=== PATIENT | male | born 1945 | race Caucasian/White ===

== ENCOUNTER 2018-09-12 20:47 | Emergency (ER) | payer MEDICARE, BC ==
[2018-09-12] MEDS ORDERED: Ondansetron PF 4 MG/2 ML Vial ONE (22:08)
[2018-09-12 22:11] LABS: #Lymphocytes 1.5 thou/uL (1.20-3.40); #Monocytes 1.2 thou/uL (0.11-0.59); #Neutrophils 9.6 thou/uL (1.40-6.50); %Basophils 0.3 % (0.0-1.0); %Eosinophils 0.1 % (0.0-10.0); %Lymphocytes 12.1 % (21.0-51.0); %Monocytes 9.4 % (0.0-10.0); %Neutrophils 78.1 % (42.0-75.0); Hemoglobin 14.4 g/dL (14.0-18.0); Mean Corpuscular HGB CONC 32.2 g/dL (32.0-36.0); Mean Corpuscular Hemoglobin 28.8 pg (27.0-31.0); Mean Corpuscular Volume 89.6 fL (78.0-98.0); Mean Platelet Volume 9.8 fL (7.4-10.4); Platelet Count 150 thou/uL (130-400); RBC Distribution Width 12.8 % (11.5-14.5); White Blood Cell (WBC) Count 12.3 thou/uL (4.8-10.8)
[2018-09-12 22:23] LABS: ALT (SGPT) 10 U/L (8-55); AST (SGOT) 15 U/L (5-34); Albumin 3.9 g/dL (3.4-4.8); Alkaline Phosphatase 97 U/L (40-150); Anion Gap 16 mmol/L (10-20); BUN (Urea Nitrogen) 13 mg/dL (8.4-25.7); Bilirubin, Total 0.5 mg/dL (0.2-1.2); Calc. Creatinine Clearance 0 mL/min (70-130); Carbon Dioxide 29 mmol/L (23-31); Chloride 97 mmol/L (98-107); Estimated GFR-MDRD 47; Globulin 2.8 g/dL (2.4-3.5); Glucose 105 mg/dL (83-110); Lipase 19 U/L (8-78); Potassium 4.4 mmol/L (3.5-5.1); Protein, Total 6.7 g/dL (5.8-8.1); Sodium 138 mmol/L (136-145)
--- NOTE | 2018-09-12 22:48 | RAD ---
Exam: Single view of the chest and 2 views of the abdomen HISTORY: Abdominal pain COMPARISON: None FINDINGS: 2 views of the abdomen and a single view the chest shows a nonspecific, nonobstructive mike l gas pattern. Air is seen to the level of the rectum. No free air or air-fluid levels are seen and upright examination. A stent graft is seen in the distal aorta. The cardiomediastinal silhouette is normal in size. There is no evidence of consolidation, mass, or p leural effusion. IMPRESSION: Nonobstructive bowel gas pattern
[2018-09-12] MEDS ORDERED: Dicyclomine 20 MG TAB ONE (23:25)
== END 2018-09-13 00:29 | disposition home or self-care (01) ==
LOC: ERS 20:47
DX: K52.9 Noninfective gastroenteritis and colitis, unspecified (principal); E04.9 Nontoxic goiter, unspecified; I10 Essential (primary) hypertension; I25.2 Old myocardial infarction; F17.210 Nicotine dependence, cigarettes, uncomplicated; Z79.899 Other long term (current) drug therapy
CPT/HCPCS: 36415; 74022; 80053; 83605; 83690; 83880; 84484; 85025; 93005; 94760; 96361; 96374; J2405; J7620

== ENCOUNTER 2018-09-14 10:07 | Inpatient (IN) | payer MEDICARE, BC ==
--- NOTE | 2018-09-14 10:40 | RAD ---
Exam: Chest one view HISTORY:Shortness of breath. Cough. Comparison: 08/21/2014 FINDINGS: Cardiac silhouette: Normal Pulmonary vessels: Normal Costophrenic angles: Clear LUNGS: Patchy interstitial opacities throughout the lung parenchyma, greatest in the lung bases. Pneumothorax: None Osseous abnormalities: None IMPRESSION: Patchy interstitial opacities, greatest in the lung bases. Correlate for edema or infiltr ate.
[2018-09-14 11:00] LABS: Hemoglobin 13.5 g/dL (14.0-18.0); Mean Corpuscular HGB CONC 32.1 g/dL (32.0-36.0); Mean Corpuscular Volume 90.3 fL (78.0-98.0); Mean Platelet Volume 9.6 fL (7.4-10.4); Platelet Count 148 thou/uL (130-400); RBC Distribution Width 13.1 % (11.5-14.5); Red Blood Cell (RBC) Count 4.65 mill/uL (4.70-6.10); White Blood Cell (WBC) Count 14.4 thou/uL (4.8-10.8)
[2018-09-14 11:26] LABS: ALT (SGPT) 13 U/L (8-55); AST (SGOT) 28 U/L (5-34); Albumin 3.3 g/dL (3.4-4.8); Alkaline Phosphatase 102 U/L (40-150); Anion Gap 17 mmol/L (10-20); BUN (Urea Nitrogen) 18 mg/dL (8.4-25.7); Band 18 % (5-11); Bilirubin, Total 0.5 mg/dL (0.2-1.2); CK (CPK) 121 U/L (30-200); Calc. Creatinine Clearance 0 mL/min (70-130); Calcium 8.4 mg/dL (7.8-10.44); Carbon Dioxide 27 mmol/L (23-31); Chloride 97 mmol/L (98-107); Estimated GFR-MDRD 44; Glucose 97 mg/dL (83-110); Lymphocytes 4 % (21-51); MDiff Complete? YES; Monocytes 9 % (0-10); Neutrophil 69 % (42-75); Platelet Morphology Comment Appears Adequate; Potassium 5.6 mmol/L (3.5-5.1); Protein, Total 6.3 g/dL (5.8-8.1); RBC Morphology Normal; Sodium 135 mmol/L (136-145); Vacuoles SLIGHT
[2018-09-14] MEDS ORDERED: Azithromycin 500 MG VIAL ONE (11:36)
[2018-09-14] MEDS ORDERED: cefTRIAXone\\ROCEPHIN 2 GM VIAL ONE (11:36)
[2018-09-14] MEDS ORDERED: methylPREDNISolone Sod Succ/PF 125 MG/2 ML VIAL ONE (11:41)
[2018-09-14] MEDS ORDERED: Acetaminophen 325 MG TAB PO PRN (13:13)
[2018-09-14] MEDS ORDERED: Calcium Carbonate 500 MG ChewTAB PO PRN (13:13)
[2018-09-14] MEDS ORDERED: Ondansetron ODT 4 MG TAB PO PRN (13:13)
[2018-09-14] MEDS ORDERED: Ondansetron PF 4 MG/2 ML Vial IVP PRN (13:13)
[2018-09-14] MEDS ORDERED: Senokot S 8.6-50 MG TAB PO PRN (13:13)
[2018-09-14] MEDS ORDERED: Pharmacy to Dose ALL ABX IVPB PRN (13:17)
[2018-09-14] MEDS ORDERED: cloNIDine 0.1 MG TAB PO PRN (13:17)
[2018-09-14] MEDS ORDERED: Bacteriostatic Water 30 ML VIAL FS PRN (13:33)
--- NOTE | 2018-09-14 13:44 | HP ---
PRIMARY CARE PHYSICIAN: Dr. Burt. PRIMARY LOOM FIXER SUPERVISOR: None. CHIEF COMPLAINT: Shortness of breath with generalized weakness. HISTORY OF PRESENT ILLNESS: The patient is a 73-year-old male with COPD with recent acute gastroenteritis, presented to the emergency room with above complaints. Over the last 1 week, the patient is not feeling well. He developed gradual worsening shortness of breath along with chest tightness and wheezing. He had cough productive of thick whitish phlegm. He felt nauseous and had several episodes of diarrhea. He was unable to keep food down. He took Imodium with some help. He was evaluated in the emergency room two days ago and was discharged home after a negative acute abdominal series. His last bowel movement was two days ago. He denies any orthopnea or paroxysmal nocturnal dyspnea. No leg swelling reported. He denies any chest pain or syncope. In the emergency room, he was found to be hypoxic, requiring supplemental oxygen. He was started on antibiotics for pneumonia. PAST MEDICAL HISTORY: 1. COPD. 2. Coronary artery disease, status post stent placement. 3. History of abdominal aortic aneurysm, status post repair. 4. History of renal infarct. 5. GERD. 6. Hypothyroidism. 7. Hypertension. 8. Tobacco dependence. 9. Peripheral vascular disease. PAST SURGICAL HISTORY: 1. Coronary stent placement. 2. Endovascular repair of abdominal aortic aneurysm in 2014. 3. Lumbar surgery for herniated back in 1999. 4. Left thyroidectomy. ALLERGIES: THE PATIENT IS ALLERGIC TO VALIUM AND MORPHINE. CURRENT HOME MEDICATIONS: The patient does not have an accurate list of medication. Family to bring the accurate list. SOCIAL HISTORY: The patient currently lives at home with his . He continues to smoke up to one pack a day for last 30 years. Denies any alcohol or drug abuse. FAMILY HISTORY: Negative for premature coronary artery disease. REVIEW OF SYSTEMS: All other review of systems was reviewed and were found negative. PHYSICAL EXAMINATION: VITAL SIGNS: Temperature 98.2, respiration of 24, pulse rate of 102, blood pressure 114/60 with O2 saturation 84% on room air. GENERAL: A 73-year-old male, in [id number] respiratory distress, able to complete short phrases. HEENT: Head; atraumatic and normocephalic. Sclerae anicteric. Dry mucous membranes. No oral lesion. NECK: Supple. No JVD appreciated. No carotid bruit. LUNGS: Showed diffuse expiratory wheezing with rhonchi. There were rales over the bases. There was significant accessory muscle use. HEART: S1 and S2 present. Tachycardic. No heaves or pulsation. 2/6 systolic murmur over the mitral area. ABDOMEN: Soft. No guarding or rigidity. There was mild tenderness over the rectus abdominis muscle. No costovertebral angle tenderness. Bowel sounds present. EXTREMITIES: No edema or calf tenderness. NEUROLOGIC: Grossly nonfocal. Moves all 4 extremities. Power was 5/5 in all extremities. PSYCHIATRIC: Alert, awake, and oriented x3. SKIN: Warm and dry. LYMPH NODES: No palpable lymph nodes in the neck. Peripheral vascular radial pulses palpable bilaterally. MUSCULOSKELETAL: No joint swelling tenderness. LABORATORY FINDINGS: WBC 14.4 with 18% bandemia, hemoglobin 13.5. Chemistry showed sodium 135, potassium 5.6, chloride 97, bicarb 27, BUN 18, creatinine 1.55, baseline creatinine unavailable. In 2016, it was 1.02. Chest x-ray by my review showed patchy interstitial opacities at the lung bases. EKG by my review showed normal sinus rhythm without significant ST-T wave changes. IMPRESSION: 1. Acute Hypoxic Respiratory failure due to COPD Exacerbation/Pneumonia 2. Sepsis with acute organ dysfunction secondary to pneumonia, suspected gram negative. 3. Acute kidney injury on chronic kidney disease stage 2. 4. Electrolyte abnormality. The patient has hyponatremia and hyperkalemia. 5. Peripheral vascular disease. 6. History of abdominal aortic aneurysm, status post endovascular repair. 7. Gastroesophageal reflux disease. 8. Hypothyroidism. 9. Hypertension. 10. Benign prostatic hypertrophy. 11. Hyperlipidemia. 12. Ongoing tobacco abuse PLAN: The patient will be monitored on the telemetry unit due to hyperkalemia. We will continue nebulizer treatment every 4 hourly as well as needed. We will continue ceftriaxone, azithromycin along with IV steroids. We will consult Pulmonary, Dr. Puri. We will add Mucinex. Resume home medications once confirmed. Lovenox for DVT prophylaxis. No SCDs due to peripheral vascular disease. ESTIMATED LENGTH OF STAY: The patient will require 2 to 3 days for stabilization. Job ID: [id number] [facility]
[2018-09-14] MEDS: Sodium Chloride 0.9% 1,000 ML IV SCH (14:22)
--- NOTE | 2018-09-14 16:33 | CON ---
DATE OF CONSULTATION: 09/14/2018 CONSULTING PHYSICIAN: Giovanni Falcon MD REASON FOR CONSULTATION: COPD exacerbation and pneumonia. The following encompassed 70 minutes time, of that time, greater than 50% was spent with the patient and/or the patient's unit in the hospital. HISTORY OF PRESENT ILLNESS: A 73-year-old male, who is visiting the hospital for the second time in 2 days. He is having increasing shortness of breath, cough, and productive yellow sputum. Symptoms have been present for over 2 days. He had an episode of severe diarrhea and an episode of vomiting last week, but the symptoms are no longer present. The patient is at least a one pack per day smoker. He has had a similar hospitalization in the past 2013 and was taken care by Dr. Rueda at that time. He is currently not on oxygen at home, but does take some type of inhaler. PAST MEDICAL HISTORY: 1. Chronic obstructive pulmonary disease. 2. Tobacco abuse. 3. Coronary artery disease, requiring coronary stent placement. 4. Abdominal aortic aneurysm requiring a Y-graft. 5. Renal infarction. 6. Gastroesophageal reflux. 7. Chronic renal insufficiency. 8. Hypothyroidism. 9. Hypertension. 10. Peripheral vascular disease. PAST SURGICAL HISTORY: 1. Coronary stent placement. 2. Y-stent in the abdomen. 3. Lumbar surgery for herniated disks. 4. Left thyroidectomy. ALLERGIES: VALIUM MAKES HIM FEEL "CRAZY." MEDICATIONS: The patient did not bring a list. SOCIAL HISTORY: Smokes at least a pack per day. Smoked heavier in the past. Does not consume alcohol. Does not use illicit drugs. 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 FAMILY MEDICAL HISTORY: Unremarkable. REVIEW OF SYSTEMS: Twelve-point review of systems is otherwise negative. PHYSICAL EXAMINATION: VITAL SIGNS: Temperature is 98.2, pulse 102, blood pressure 114/60, O2 saturation is 100% on 3 L nasal cannula, and respiratory rate in the low 30s. GENERAL: He is an elderly male, who appears older than the stated age and does have some degree of respiratory distress. HEENT: He has mild bitemporal wasting. Oropharynx is clear. No jaundice. NECK: No adenopathy. No JVD or bruits. He has a left-sided surgical scar. CARDIOVASCULAR: S1 and S2, tachycardic without audible murmur. LUNGS: He has diffuse crackles, most prominent at the bases. He has diffuse wheezing, most prominent over the apices posteriorly. ABDOMEN: Soft and nontender. There is no hepatosplenomegaly. EXTREMITIES: No clubbing, cyanosis, or edema. NEUROLOGIC: He moves all 4 extremities without difficulty. Has full sensation throughout. He is alert and oriented x3. SKIN: Shows no rashes, bruising, or jaundice. LABORATORY DATA: Sodium 135, potassium 5.6, chloride 97, CO2 of 27, BUN 18, creatinine 1.5, glucose 97, and albumin 3.3. White blood cell count 14.4, hemoglobin 13.5, hematocrit 42.0, and platelet count 148 with 69% neutrophils, 18% bands. IMAGING DATA: Chest x-ray shows some interstitial changes towards the bases. ASSESSMENT: 1. Chronic obstructive pulmonary disease with exacerbation. 2. Acute on chronic hypoxic respiratory failure. 3. Possible pneumonitis given appearance of x-ray. PLAN: The patient will be admitted to the hospital and placed on IV steroids, IV antibiotics, nebulization treatments. He will receive enoxaparin for DVT prophylaxis and Protonix for GI prophylaxis. Smoking cessation has been advised. Job ID: [id number]
[2018-09-14] MEDS: Nicotine 14 MG PATCH TD SCH ×3 (17:54→19:03)
[2018-09-14] MEDS ORDERED: methylPREDNISolone Sod Succ/PF 125 MG/2 ML VIAL IVP SCH (18:00)
[2018-09-14] MEDS: methylPREDNISolone Sod Succ 40 MG VIAL IVP SCH ×2 (18:04→23:45)
[2018-09-14] MEDS: Mometasone/Formoterol 120 PUFF INHALER INH SCH (18:40)
[2018-09-14] MEDS: guaiFENesin ER 600 MG TAB PO SCH (20:09)
[2018-09-14] MEDS: Enoxaparin Sodium 40 MG/0.4 ML SYRINGE SC SCH (20:09)
[2018-09-15] MEDS: Sodium Chloride 0.9% 1,000 ML IV SCH ×2 (04:14→16:15)
[2018-09-15] MEDS: methylPREDNISolone Sod Succ 40 MG VIAL IVP SCH ×4 (05:39→23:07)
[2018-09-15] MEDS: Levothyroxine Sodium 125 MCG TAB PO SCH (05:39)
[2018-09-15 06:53] LABS: #Lymphocytes 0.4 thou/uL (1.20-3.40); #Monocytes 0.2 thou/uL (0.11-0.59); #Neutrophils 9.7 thou/uL (1.40-6.50); %Basophils 0.4 % (0.0-1.0); %Eosinophils 0.1 % (0.0-10.0); %Lymphocytes 3.7 % (21.0-51.0); %Monocytes 2.1 % (0.0-10.0); %Neutrophils 93.7 % (42.0-75.0); Hemoglobin 12.5 g/dL (14.0-18.0); Mean Corpuscular HGB CONC 31.7 g/dL (32.0-36.0); Mean Corpuscular Hemoglobin 29.2 pg (27.0-31.0); Mean Corpuscular Volume 92.2 fL (78.0-98.0); Mean Platelet Volume 9.9 fL (7.4-10.4); Platelet Count 134 thou/uL (130-400); Red Blood Cell (RBC) Count 4.29 mill/uL (4.70-6.10); White Blood Cell (WBC) Count 10.4 thou/uL (4.8-10.8)
[2018-09-15 07:12] LABS: Anion Gap 13 mmol/L (10-20); BUN (Urea Nitrogen) 16 mg/dL (8.4-25.7); Calc. Creatinine Clearance 59 mL/min (70-130); Calcium 8.7 mg/dL (7.8-10.44); Carbon Dioxide 26 mmol/L (23-31); Chloride 101 mmol/L (98-107); Estimated GFR-MDRD 71; Glucose 193 mg/dL (83-110); Magnesium 1.9 mg/dL (1.6-2.6); Potassium 4.2 mmol/L (3.5-5.1); Sodium 136 mmol/L (136-145)
[2018-09-15] MEDS: Mometasone/Formoterol 120 PUFF INHALER INH SCH ×2 (07:17→18:53)
[2018-09-15] MEDS: guaiFENesin ER 600 MG TAB PO SCH ×2 (08:54→21:39)
[2018-09-15] MEDS: Clopidogrel Bisulfate 75 MG TAB PO SCH (08:54)
[2018-09-15] MEDS: Saccharomyces boulardii 250 MG CAP PO SCH (08:54)
[2018-09-15] MEDS: Azithromycin 500 MG in Sodium Chloride 0.9% 250 ML 250 ML IVPB SCH (10:58)
[2018-09-15] MEDS: cefTRIAXone\\ROCEPHIN 2 GM in Sodium Chloride 0.9% 100 ML IVPB SCH (14:15)
[2018-09-15] MEDS: Nicotine 14 MG PATCH TD SCH (16:16)
--- NOTE | 2018-09-15 18:48 | PRG ---
DATE OF SERVICE: 09/15/2018 SUBJECTIVE: Mr. Arguelles's events have been reviewed. He says he was sick for at least a week prior to coming in. His is dealing apparently with metastatic cancer. He wanted to be around for her. Actually, he had her appear this last week, getting a biopsy of something, I believe her liver. He says he is feeling better. He said he could barely speak when he first got to the hospital. OBJECTIVE: VITAL SIGNS: On exam, he is afebrile, heart rate 71, respiratory rate 26, oximetry is 96% on 3 L, blood pressure 123/60. Intake and outputs not recorded. LUNGS: Remarkable for crackles at his bases. He does have some anterior wheezes. HEART: Regular rhythm. S1 and S2 are distant. ABDOMEN: Soft and nontender. EXTREMITIES: Without edema. LABORATORY DATA: White count 10.4, hemoglobin 12.5, platelets 134. Electrolytes are unremarkable. IMPRESSION: 1. Chronic obstructive pulmonary disease exacerbation. 2. Increased interstitial markings at his bases, likely secondary to apical bullous disease and lung crowding. 3. History of coronary stent placement in the past. 4. History of abdominal aortic aneurysm repair. 5. History of a renal infarction in the past. 6. Hypertension. 7. Ongoing tobacco use up to a pack a day. I explained to him that if he calls the office, we can work him and hopefully avoid hospitalization. I will repeat a chest x-ray, probably Thursday. I think predominantly his issues are COPD exacerbation and if he has any pneumonia, it is very mild part of his illness. I will follow with the other physicians. Job ID: [id number] [facility]
--- NOTE | 2018-09-15 20:27 | PDOC.PN ---
- Subjective Encounter Start Date: 09/15/18 Encounter Start Time: 20:26 Patient seen and examined for Resp failure. SOB improving. Intermittent wheezing. No CP. No other complaints. No overnight events - Objective Resuscitation Status - Order Detail: 09/14/18 13:13 Resuscitation Status Routine Resuscitation Status: FULL: Full Resuscitation MAR Reviewed: Yes Vital Signs & Weight: Vital Signs (12 hours) Temp Pulse Resp BP Pulse Ox 09/15/18 18:53 72 18 93 L 09/15/18 16:26 97.6 F 71 26 H 123/60 96 09/15/18 13:59 70 22 H 92 L 09/15/18 11:51 97.5 F L 75 20 112/56 L 97 09/15/18 10:32 61 20 93 L 09/15/18 09:00 97.5 F L 71 18 141/71 H 99 Weight Admit Weight 145 lb Weight 145 lb I&O: 09/14/18 09/15/18 09/16/18 06:59 06:59 06:59 Intake Total 720 2150 Balance 720 2150 Result Diagrams: 09/15/18 06:10 09/15/18 06:10 EKG Reviewed by me: Yes (Tele SR) Phys Exam - Physical Examination Constitutional: NAD Respiratory: no rales, wheezing present rhonchi + Cardiovascular: RRR, no rub Gastrointestinal: soft, non-tender, positive bowel sounds Musculoskeletal: no edema Neurological: moves all 4 limbs Dx/Plan - Plan DVT proph w/lovenox, DVT proph w/SCDs IMPRESSION: 1. Acute Hypoxic Respiratory failure due to COPD Exacerbation/Pneumonia 2. Sepsis with acute organ dysfunction secondary to pneumonia, suspected gram negative. 3. Acute kidney injury on chronic kidney disease stage 2. 4. Electrolyte abnormality(hyponatremia and hyperkalemia) - improving 5. Peripheral vascular disease. 6. History of abdominal aortic aneurysm, status post endovascular repair. 7. Gastroesophageal reflux disease. 8. Hypothyroidism. 9. Hypertension. 10. Benign prostatic hypertrophy. 11. Hyperlipidemia. 12. Ongoing tobacco abuse PLAN: Cont IV Atbx Cont IV Steroids Treat constipation Ambulate Cont other meds as below Review of Systems - Medications/Allergies Allergies/Adverse Reactions: Allergies Allergy/AdvReac Type Severity Reaction Status Date / Time diazepam [From Valium] AdvReac SHAKINESS Verified 03/13/13 14:21 Medications: Current Medications Acetaminophen (Tylenol) 650 mg PO Q4H PRN PRN Reason: Headache/Fever/Mild Pain (1-3) Albuterol/Ipratropium (Duoneb) 3 ml NEB [id number] [facility] Last Admin: 09/15/18 18:53 Dose: 3 ml Albuterol/Ipratropium (Duoneb) 3 ml NEB Q2H PRN PRN Reason: SOB &/or Wheezing Calcium Carbonate (Tums) 1,000 mg PO Q4H PRN PRN Reason: Heartburn or Indigestion Clonidine (Catapres) 0.1 mg PO Q4H PRN PRN Reason: SBP Greater Than 180 Clopidogrel Bisulfate (Plavix) 75 mg PO DAILY [facility] Last Admin: 09/15/18 08:54 Dose: 75 mg Enoxaparin Sodium (Lovenox) 40 mg SC 2100 [facility] Last Admin: 09/14/18 20:09 Dose: 40 mg Guaifenesin (Mucinex) 600 mg PO Q12HR [facility] Last Admin: 09/15/18 08:54 Dose: 600 mg Azithromycin 500 mg/ Sodium (Chloride) 250 mls @ 250 mls/hr IVPB 1100 [facility] Last Admin: 09/15/18 10:58 Dose: 250 mls Ceftriaxone Sodium 2 gm/ (Sodium Chloride) 100 mls @ 200 mls/hr IVPB 1200 [facility] Last Admin: 09/15/18 14:15 Dose: 100 mls Levothyroxine Sodium (Synthroid) 125 mcg PO 0600 [facility] Last Admin: 09/15/18 05:39 Dose: 125 mcg Methylprednisolone Sodium Succinate (Solu-Medrol) 40 mg IVP Q6HR [facility] Last Admin: 09/15/18 18:24 Dose: 40 mg Miscellaneous Medication (Pharmacy To Dose) 1 each IVPB .ALL ABX PRN PRN Reason: Pharmacy to dose Mometasone Furoate/Formoterol Fumar (Dulera 200 Mcg/5 Mcg Inhaler) 2 puff INH BID-RT [facility] Last Admin: 09/15/18 18:53 Dose: 2 puff Nicotine (Nicoderm Patch) 14 mg TD Q24HR [facility] Last Admin: 09/15/18 16:16 Dose: 14 mg Ondansetron HCl (Zofran Odt) 4 mg PO Q6H PRN PRN Reason: Nausea/Vomiting Ondansetron HCl (Zofran) 4 mg IVP Q6H PRN PRN Reason: Nausea/Vomiting Pantoprazole Sodium (Protonix) 40 mg PO DAILY [facility] Last Admin: 09/15/18 08:54 Dose: 40 mg Saccharomyces Boulardii (Florastor) 250 mg PO DAILY [facility] Last Admin: 09/15/18 08:54 Dose: 250 mg Senna/Docusate Sodium (Senokot S) 1 tab PO BID PRN PRN Reason: Constipation Last Admin: 09/15/18 11:01 Dose: 1 tab Sodium Chloride (Flush - Normal Saline) 10 ml IVF PRN PRN PRN Reason: Saline Flush Last Admin: 09/15/18 11:56 Dose: 10 ml Sterile Water (Bacteriostatic Water) 1 ml FS PRN PRN PRN Reason: RECONSTITUTION
[2018-09-15] MEDS ORDERED: Bisacodyl 10 MG SUPP PR PRN (20:31)
[2018-09-15] MEDS ORDERED: Polyethylene Glycol 3350 17 GM Packet PO SCH (21:00)
[2018-09-15] MEDS: Enoxaparin Sodium 40 MG/0.4 ML SYRINGE SC SCH (21:39)
[2018-09-15] MEDS: Senokot S 8.6-50 MG TAB PO SCH (21:39)
[2018-09-16] MEDS: Levothyroxine Sodium 125 MCG TAB PO SCH (06:57)
[2018-09-16] MEDS: Mometasone/Formoterol 120 PUFF INHALER INH SCH ×2 (06:57→19:20)
[2018-09-16] MEDS: methylPREDNISolone Sod Succ 40 MG VIAL IVP SCH ×4 (06:58→23:42)
[2018-09-16] MEDS: Senokot S 8.6-50 MG TAB PO SCH (09:28)
[2018-09-16] MEDS: Saccharomyces boulardii 250 MG CAP PO SCH (09:28)
[2018-09-16] MEDS: Clopidogrel Bisulfate 75 MG TAB PO SCH (09:29)
[2018-09-16] MEDS: guaiFENesin ER 600 MG TAB PO SCH ×2 (09:29→19:55)
--- NOTE | 2018-09-16 12:28 | PRG ---
DATE OF SERVICE: 09/16/2018 SUBJECTIVE: Dwight Arguelles says he is feeling better. OBJECTIVE: VITAL SIGNS: On exam, he is afebrile, heart rate 73, respiratory rate 16, oximetry is 96% on 3 L, and blood pressure is 143/68. LUNGS: Remarkable for more audible wheezes compared to yesterday. He is in less distress. He is talking in longer sentences. HEART: Regular rhythm. ABDOMEN: Soft and nontender. LABORATORY DATA: There is no new lab today. I plan to repeat a chest x-ray in the morning. IMPRESSION: 1. Chronic obstructive pulmonary disease exacerbation. 2. Increased interstitial markings at his lung bases, which may be basilar interstitial crowding secondary to apical bullous disease. I do not feel he has congestive heart failure in him, this being atypical presentation for pneumonia. We will continue his current care and repeat a radiograph in the morning. He probably will not be a candidate to go home until this weekend and the first part of next week. We will probably switch him to p.o. antimicrobial therapy in the morning. His steroid dosing can be decreased a little bit hopefully to avoid some of the weakness and side effects associated with the higher doses of steroids. Job ID: [id number] [facility]
[2018-09-16] MEDS: cefTRIAXone\\ROCEPHIN 2 GM in Sodium Chloride 0.9% 100 ML IVPB SCH (14:02)
[2018-09-16] MEDS: Azithromycin 500 MG in Sodium Chloride 0.9% 250 ML 250 ML IVPB SCH (14:02)
--- NOTE | 2018-09-16 18:00 | PDOC.PN ---
- Subjective Encounter Start Date: 09/16/18 Encounter Start Time: 17:00 Patient seen and examined for COPD Exacerbation. Feeling better. SOB on exertion with wheezing +. No other complaints. No overnight events - Objective Resuscitation Status - Order Detail: 09/14/18 13:13 Resuscitation Status Routine Resuscitation Status: FULL: Full Resuscitation MAR Reviewed: Yes Vital Signs & Weight: Vital Signs (12 hours) Temp Pulse Resp BP Pulse Ox 09/16/18 14:38 77 16 94 L 09/16/18 12:25 97.8 F 71 20 129/62 94 L 09/16/18 11:01 73 16 96 09/16/18 07:40 97.5 F L 87 18 143/68 H 94 L 09/16/18 06:59 92 L 09/16/18 06:58 72 16 92 L 09/16/18 06:57 73 16 90 L Weight Admit Weight 145 lb Weight 145 lb I&O: 09/15/18 09/16/18 09/17/18 06:59 06:59 06:59 Intake Total 720 2630 Balance 720 2630 Result Diagrams: 09/15/18 06:10 09/15/18 06:10 EKG Reviewed by me: Yes (Tele SR) Phys Exam - Physical Examination Constitutional: NAD (at rest) Respiratory: wheezing present Scat rhonchi Cardiovascular: RRR, no rub Gastrointestinal: soft, non-tender, positive bowel sounds Musculoskeletal: no edema Neurological: moves all 4 limbs Dx/Plan - Plan DVT proph w/lovenox, DVT proph w/SCDs IMPRESSION: 1. Acute Hypoxic Respiratory failure due to COPD Exacerbation/Pneumonia 2. Sepsis with acute organ dysfunction secondary to pneumonia, suspected gram negative. 3. Acute kidney injury on chronic kidney disease stage 2. 4. Electrolyte abnormality(hyponatremia and hyperkalemia) - improving 5. Peripheral vascular disease. 6. History of abdominal aortic aneurysm, status post endovascular repair. 7. Gastroesophageal reflux disease. 8. Hypothyroidism. 9. Hypertension. 10. Benign prostatic hypertrophy. 11. Hyperlipidemia. 12. Ongoing tobacco abuse - counselled. PLAN: Cont IV Atbx IV Steroid dose reduced Cont other meds as below Cont Nebs Q4h Review of Systems - Review of Systems Respiratory: Cough, Dry, SOB with Excertion Cardiovascular: negative: chest pain, palpitations, orthopnea, paroxysmal nocturnal dyspnea, edema, light headedness, other Gastrointestinal: negative: Nausea, Vomiting, Abdominal Pain, Diarrhea, Constipation, Melena, Hematochezia, Other - Medications/Allergies Allergies/Adverse Reactions: Allergies Allergy/AdvReac Type Severity Reaction Status Date / Time diazepam [From Valium] AdvReac SHAKINESS Verified 03/13/13 14:21 Medications: Current Medications Acetaminophen (Tylenol) 650 mg PO Q4H PRN PRN Reason: Headache/Fever/Mild Pain (1-3) Albuterol/Ipratropium (Duoneb) 3 ml NEB [id number] [facility] Last Admin: 09/16/18 14:38 Dose: 3 ml Albuterol/Ipratropium (Duoneb) 3 ml NEB Q2H PRN PRN Reason: SOB &/or Wheezing Bisacodyl (Dulcolax) 10 mg [place] DAILYPRN PRN PRN Reason: Constipation Calcium Carbonate (Tums) 1,000 mg PO Q4H PRN PRN Reason: Heartburn or Indigestion Clonidine (Catapres) 0.1 mg PO Q4H PRN PRN Reason: SBP Greater Than 180 Clopidogrel Bisulfate (Plavix) 75 mg PO DAILY [facility] Last Admin: 09/16/18 09:29 Dose: 75 mg Docusate Sodium (Colace) 100 mg PO BID [facility] Enoxaparin Sodium (Lovenox) 30 mg SC 2100 [facility] Guaifenesin (Mucinex) 600 mg PO Q12HR [facility] Last Admin: 09/16/18 09:29 Dose: 600 mg Azithromycin 500 mg/ Sodium (Chloride) 250 mls @ 250 mls/hr IVPB 1100 [facility] Last Admin: 09/16/18 14:02 Dose: 250 mls Ceftriaxone Sodium 2 gm/ (Sodium Chloride) 100 mls @ 200 mls/hr IVPB 1200 [facility] Last Admin: 09/16/18 14:02 Dose: 100 mls Levothyroxine Sodium (Synthroid) 125 mcg PO 0600 [facility] Last Admin: 09/16/18 06:57 Dose: 125 mcg Methylprednisolone Sodium Succinate (Solu-Medrol) 20 mg IVP Q6HR [facility] Last Admin: 09/16/18 14:03 Dose: 20 mg Miscellaneous Medication (Pharmacy To Dose) 1 each IVPB .ALL ABX PRN PRN Reason: Pharmacy to dose Mometasone Furoate/Formoterol Fumar (Dulera 200 Mcg/5 Mcg Inhaler) 2 puff INH BID-RT [facility] Last Admin: 09/16/18 06:57 Dose: 2 puff Nicotine (Nicoderm Patch) 14 mg TD Q24HR [facility] Last Admin: 09/15/18 16:16 Dose: 14 mg Ondansetron HCl (Zofran Odt) 4 mg PO Q6H PRN PRN Reason: Nausea/Vomiting Ondansetron HCl (Zofran) 4 mg IVP Q6H PRN PRN Reason: Nausea/Vomiting Pantoprazole Sodium (Protonix) 40 mg PO DAILY [facility] Last Admin: 09/16/18 09:29 Dose: 40 mg Saccharomyces Boulardii (Florastor) 250 mg PO DAILY [facility] Last Admin: 09/16/18 09:28 Dose: 250 mg Senna/Docusate Sodium (Senokot S) 1 tab PO BID PRN PRN Reason: Constipation Last Admin: 09/15/18 11:01 Dose: 1 tab Sodium Chloride (Flush - Normal Saline) 10 ml IVF PRN PRN PRN Reason: Saline Flush Last Admin: 09/15/18 11:56 Dose: 10 ml Sterile Water (Bacteriostatic Water) 1 ml FS PRN PRN PRN Reason: RECONSTITUTION
[2018-09-16] MEDS: Nicotine 14 MG PATCH TD SCH (18:03)
[2018-09-16] MEDS: Enoxaparin Sodium 30 MG/0.3 ML SYRINGE SC SCH (19:55)
[2018-09-16] MEDS: Docusate 100 MG CAP PO SCH (19:55)
[2018-09-17] MEDS: methylPREDNISolone Sod Succ 40 MG VIAL IVP SCH ×2 (05:29→13:33)
[2018-09-17] MEDS: Levothyroxine Sodium 125 MCG TAB PO SCH (05:29)
[2018-09-17] MEDS: Mometasone/Formoterol 120 PUFF INHALER INH SCH ×2 (06:57→19:25)
--- NOTE | 2018-09-17 08:46 | RAD ---
CHEST 1 VIEW: HISTORY: COPD. Dyspnea. Followup. COMPARISON: 09/14/2018. FINDINGS: Cardiac silhouette is magnified by projection. Pulmonary vasculature unremarkable. Mediastinum is m idline. Lungs remain hyperinflated. Bilateral very subtle patchy areas of parenchymal opacity are u nchanged in appearance from the previous exam. No lobar consolidation or evidence of pneumothorax. IMPRESSION: Patchy bilateral airspace disease and other findings are stable. Cause not yet apparent radiographic ally. POS: [facility]
[2018-09-17] MEDS: Docusate 100 MG CAP PO SCH ×2 (09:05→21:01)
[2018-09-17] MEDS: guaiFENesin ER 600 MG TAB PO SCH ×2 (09:05→21:01)
[2018-09-17] MEDS: Clopidogrel Bisulfate 75 MG TAB PO SCH (09:05)
[2018-09-17] MEDS: Saccharomyces boulardii 250 MG CAP PO SCH (09:09)
[2018-09-17] MEDS: Azithromycin 500 MG in Sodium Chloride 0.9% 250 ML 250 ML IVPB SCH (11:27)
[2018-09-17] MEDS: cefTRIAXone\\ROCEPHIN 2 GM in Sodium Chloride 0.9% 100 ML IVPB SCH (13:33)
--- NOTE | 2018-09-17 15:43 | PDOC.PN ---
- Subjective Encounter Start Date: 09/17/18 Encounter Start Time: 14:00 Patient seen and examined for Resp failure. SOB improving. No fever/chills. No new complaints. No overnight events - Objective Resuscitation Status - Order Detail: 09/14/18 13:13 Resuscitation Status Routine Resuscitation Status: FULL: Full Resuscitation MAR Reviewed: Yes Vital Signs & Weight: Vital Signs (12 hours) Temp Pulse Resp BP BP Pulse Ox 09/17/18 14:45 65 16 92 L 09/17/18 11:46 197/95 H 09/17/18 11:41 97.6 F 76 18 197/95 H 98 09/17/18 10:32 78 16 90 L 09/17/18 09:01 95 09/17/18 07:46 97.7 F 76 20 177/86 H 95 09/17/18 07:00 96 09/17/18 06:58 71 16 96 09/17/18 06:57 71 16 96 Weight Admit Weight 145 lb Weight 153 lb 2 oz I&O: 09/16/18 09/17/18 09/18/18 06:59 06:59 06:59 Intake Total 2630 1400 Output Total 1040 Balance 2630 360 Result Diagrams: 09/15/18 06:10 09/15/18 06:10 EKG Reviewed by me: Yes (Tele SR) Phys Exam - Physical Examination Constitutional: NAD Respiratory: no rales, wheezing present (mild - scat) Cardiovascular: RRR, no rub Gastrointestinal: soft, non-tender, positive bowel sounds Musculoskeletal: no edema Neurological: moves all 4 limbs Psychiatric: normal affect, A&O x 3 Dx/Plan - Plan DVT proph w/SCDs IMPRESSION: 1. Acute Hypoxic Respiratory failure due to COPD Exacerbation/Pneumonia 2. Sepsis with acute organ dysfunction secondary to pneumonia, suspected gram negative. 3. Acute kidney injury on chronic kidney disease stage 2. 4. Electrolyte abnormality(hyponatremia and hyperkalemia) - improving 5. Peripheral vascular disease. 6. History of abdominal aortic aneurysm, status post endovascular repair. 7. Gastroesophageal reflux disease. 8. Hypothyroidism. 9. Hypertension. 10. Benign prostatic hypertrophy. 11. Hyperlipidemia. 12. Ongoing tobacco abuse - counselled. PLAN: Patient has no IV access. Will change steroids and Atbx to PO Cont Nebs Transfer to medical Cont other meds as below Review of Systems - Review of Systems Respiratory: Cough, Dry, SOB with Excertion. negative: Shortness of Breath, Hemoptysis, Pleuritic Pain, Sputum, Wheezing Cardiovascular: negative: chest pain, palpitations, orthopnea, paroxysmal nocturnal dyspnea, edema, light headedness, other Gastrointestinal: negative: Nausea, Vomiting, Abdominal Pain, Diarrhea, Constipation, Melena, Hematochezia, Other - Medications/Allergies Allergies/Adverse Reactions: Allergies Allergy/AdvReac Type Severity Reaction Status Date / Time diazepam [From Valium] AdvReac SHAKINESS Verified 03/13/13 14:21 Medications: Current Medications Acetaminophen (Tylenol) 650 mg PO Q4H PRN PRN Reason: Headache/Fever/Mild Pain (1-3) Albuterol/Ipratropium (Duoneb) 3 ml NEB [id number] [facility] Last Admin: 09/17/18 14:45 Dose: 3 ml Albuterol/Ipratropium (Duoneb) 3 ml NEB Q2H PRN PRN Reason: SOB &/or Wheezing Bisacodyl (Dulcolax) 10 mg ME DAILYPRN PRN PRN Reason: Constipation Calcium Carbonate (Tums) 1,000 mg PO Q4H PRN PRN Reason: Heartburn or Indigestion Clonidine (Catapres) 0.1 mg PO Q4H PRN PRN Reason: SBP Greater Than 180 Last Admin: 09/17/18 11:46 Dose: 0.1 mg Clopidogrel Bisulfate (Plavix) 75 mg PO DAILY [facility] Last Admin: 09/17/18 09:05 Dose: 75 mg Docusate Sodium (Colace) 100 mg PO BID [facility] Last Admin: 09/17/18 09:05 Dose: 100 mg Enoxaparin Sodium (Lovenox) 30 mg SC 2100 [facility] Last Admin: 09/16/18 19:55 Dose: 30 mg Guaifenesin (Mucinex) 600 mg PO Q12HR [facility] Last Admin: 09/17/18 09:05 Dose: 600 mg Azithromycin 500 mg/ Sodium (Chloride) 250 mls @ 250 mls/hr IVPB 1100 [facility] Last Admin: 09/17/18 11:27 Dose: 250 mls Ceftriaxone Sodium 2 gm/ (Sodium Chloride) 100 mls @ 200 mls/hr IVPB 1200 [facility] Last Admin: 09/17/18 13:33 Dose: Not Given Levothyroxine Sodium (Synthroid) 125 mcg PO 0600 [facility] Last Admin: 09/17/18 05:29 Dose: 125 mcg Methylprednisolone Sodium Succinate (Solu-Medrol) 20 mg IVP Q6HR [facility] Last Admin: 09/17/18 13:33 Dose: Not Given Miscellaneous Medication (Pharmacy To Dose) 1 each IVPB .ALL ABX PRN PRN Reason: Pharmacy to dose Mometasone Furoate/Formoterol Fumar (Dulera 200 Mcg/5 Mcg Inhaler) 2 puff INH BID-RT [facility] Last Admin: 09/17/18 06:57 Dose: 2 puff Nicotine (Nicoderm Patch) 14 mg TD Q24HR [facility] Last Admin: 09/16/18 18:03 Dose: 14 mg Ondansetron HCl (Zofran Odt) 4 mg PO Q6H PRN PRN Reason: Nausea/Vomiting Ondansetron HCl (Zofran) 4 mg IVP Q6H PRN PRN Reason: Nausea/Vomiting Pantoprazole Sodium (Protonix) 40 mg PO DAILY [facility] Last Admin: 09/17/18 09:05 Dose: 40 mg Saccharomyces Boulardii (Florastor) 250 mg PO DAILY [facility] Last Admin: 09/17/18 09:09 Dose: 250 mg Senna/Docusate Sodium (Senokot S) 1 tab PO BID PRN PRN Reason: Constipation Last Admin: 09/15/18 11:01 Dose: 1 tab Sodium Chloride (Flush - Normal Saline) 10 ml IVF PRN PRN PRN Reason: Saline Flush Last Admin: 09/15/18 11:56 Dose: 10 ml Sterile Water (Bacteriostatic Water) 1 ml FS PRN PRN PRN Reason: RECONSTITUTION
[2018-09-17] MEDS ORDERED: Cefdinir 300 MG CAP PO SCH (16:00)
[2018-09-17] MEDS ORDERED: Azithromycin 250 MG TAB PO SCH (16:00)
[2018-09-17] MEDS: predniSONE 20 MG TAB PO SCH (16:28)
[2018-09-17] MEDS: Nicotine 14 MG PATCH TD SCH (16:28)
--- NOTE | 2018-09-17 16:38 | PRG ---
DATE OF SERVICE: 09/17/2018 SUBJECTIVE: Dwight Arguelles says he is feeling better. He ate all of his lunch. He is still with modestly elevated blood pressure at 197/95 this afternoon. OBJECTIVE: VITAL SIGNS: He is afebrile. Heart rate 76, respiratory rate 18, and oximetry is 92% on 3 L cannula. LUNGS: Distant and clear. HEART: Regular rhythm. ABDOMEN: Soft. EXTREMITIES: Without edema. IMPRESSION: 1. Chronic obstructive pulmonary disease exacerbation. 2. Increase in interstitial markings. This may be secondary to his poorly controlled hypertension and diastolic dysfunction. PLAN: Continue with blood pressure control. Be switched to p.o. medications. We will continue to follow. Job ID: [id number]
[2018-09-17] MEDS: Cefdinir 300 MG CAP PO SCH (21:01)
[2018-09-17] MEDS: Enoxaparin Sodium 30 MG/0.3 ML SYRINGE SC SCH (21:01)
[2018-09-18 05:02] LABS: Anion Gap 8 mmol/L (10-20); BUN (Urea Nitrogen) 22 mg/dL (8.4-25.7); Calc. Creatinine Clearance 74 mL/min (70-130); Calcium 8.6 mg/dL (7.8-10.44); Carbon Dioxide 37 mmol/L (23-31); Chloride 99 mmol/L (98-107); Estimated GFR-MDRD 87; Glucose 131 mg/dL (83-110); Potassium 4.6 mmol/L (3.5-5.1); Sodium 139 mmol/L (136-145)
[2018-09-18 05:06] VITALS: BMI 24.5
[2018-09-18 06:01] LABS: Band 14 % (5-11); Hemoglobin 12.4 g/dL (14.0-18.0); Lymphocytes 7 % (21-51); MDiff Complete? YES; Mean Corpuscular HGB CONC 31.7 g/dL (32.0-36.0); Mean Corpuscular Volume 91.5 fL (78.0-98.0); Mean Platelet Volume 8.8 fL (7.4-10.4); Monocytes 3 % (0-10); Neutrophil 75 % (42-75); Platelet Count 177 thou/uL (130-400); Platelet Morphology Comment Appears Adequate; RBC Distribution Width 13.3 % (11.5-14.5); Reactive Lymphocytes 1 % (0-10); Red Blood Cell (RBC) Count 4.27 mill/uL (4.70-6.10); White Blood Cell (WBC) Count 11.3 thou/uL (4.8-10.8)
[2018-09-18] MEDS: Levothyroxine Sodium 125 MCG TAB PO SCH (06:15)
[2018-09-18] MEDS: Mometasone/Formoterol 120 PUFF INHALER INH SCH ×2 (06:30→18:01)
[2018-09-18] MEDS: Saccharomyces boulardii 250 MG CAP PO SCH (08:27)
[2018-09-18] MEDS: Cefdinir 300 MG CAP PO SCH ×2 (08:27→20:03)
[2018-09-18] MEDS: Clopidogrel Bisulfate 75 MG TAB PO SCH (08:27)
[2018-09-18] MEDS: Azithromycin 250 MG TAB PO SCH (08:27)
[2018-09-18] MEDS: predniSONE 20 MG TAB PO SCH ×2 (08:27→15:52)
[2018-09-18] MEDS: Docusate 100 MG CAP PO SCH ×2 (08:28→20:04)
[2018-09-18] MEDS: guaiFENesin ER 600 MG TAB PO SCH ×2 (08:28→20:04)
--- NOTE | 2018-09-18 14:43 | PDOC.PN ---
- Subjective Encounter Start Date: 09/18/18 (f/u COPD exac) Encounter Start Time: 14:39 Subjective: Pt reports he is feeling better today. Denies any new sx. -: denies any chest pain/n/v/abd pain. Is having harder stools. - Objective Resuscitation Status - Order Detail: 09/14/18 13:13 Resuscitation Status Routine Resuscitation Status: FULL: Full Resuscitation Vital Signs & Weight: Vital Signs (12 hours) Temp Pulse Resp BP Pulse Ox 09/18/18 14:14 81 16 93 L 09/18/18 11:13 98.1 F 87 22 H 171/72 H 92 L 09/18/18 09:59 81 16 94 L 09/18/18 08:00 92 L 09/18/18 07:52 97.5 F L 72 22 H 154/68 H 92 L 09/18/18 06:25 76 16 93 L 09/18/18 04:00 98.6 F 77 20 162/79 H 97 Weight Admit Weight 145 lb Weight 152 lb 9.6 oz I&O: 09/17/18 09/18/18 09/19/18 06:59 06:59 06:59 Intake Total 1400 860 Output Total 1040 Balance 360 860 Result Diagrams: 09/18/18 04:23 09/18/18 04:23 Phys Exam - Physical Examination Constitutional: NAD fair air movement, no audible wheezing Cardiovascular: RRR, no significant murmur distant heart sounds Gastrointestinal: soft, non-tender, no distention, positive bowel sounds Musculoskeletal: no edema Neurological: non-focal, moves all 4 limbs Psychiatric: normal affect Dx/Plan (1) COPD exacerbation Code(s): J44.1 - CHRONIC OBSTRUCTIVE PULMONARY DISEASE W (ACUTE) EXACERBATION Status: Acute (2) Acute and chronic respiratory failure with hypoxia Code(s): J96.21 - ACUTE AND CHRONIC RESPIRATORY FAILURE WITH HYPOXIA Status: Acute (3) Sepsis Code(s): A41.9 - SEPSIS, UNSPECIFIED ORGANISM Status: Acute Qualifiers: Sepsis type: sepsis due to unspecified organism Qualified Code(s): A41.9 - Sepsis, unspecified organism (4) COLBY (acute kidney injury) Code(s): N17.9 - ACUTE KIDNEY FAILURE, UNSPECIFIED Status: Resolved (5) PVD (peripheral vascular disease) Code(s): I73.9 - PERIPHERAL VASCULAR DISEASE, UNSPECIFIED Status: Chronic (6) BPH (benign prostatic hyperplasia) Code(s): N40.0 - BENIGN PROSTATIC HYPERPLASIA WITHOUT LOWER URINRY TRACT SYMP Status: Chronic Qualifiers: Lower urinary tract symptom presence: symptoms present (7) Hypothyroid Code(s): E03.9 - HYPOTHYROIDISM, UNSPECIFIED Status: Chronic (8) GERD (gastroesophageal reflux disease) Code(s): K21.9 - GASTRO-ESOPHAGEAL REFLUX DISEASE WITHOUT ESOPHAGITIS Status: Chronic Qualifiers: Esophagitis presence: esophagitis presence not specified Qualified Code(s) : K21.9 - Gastro-esophageal reflux disease without esophagitis (9) Hypertension Code(s): I10 - ESSENTIAL (PRIMARY) HYPERTENSION Status: Chronic - Plan * COPD exac - continue current meds and wean oxygen * Pt's meds reviewed - he has the bottles - resume home meds and RN to update the med rec in the computer. Specifically resume his anti-htn meds. * Hard stools - add additional stool softener * * dvt prophy - scd's, will d/c lovenox * gi prophy - on PPI at home - continue * code status full * * anticipate d/c in the next 1-2 days based on ability to ambulate, wean oxygen. * pt remains at high risk in current condition * reviewed plan of care with patient, no questions or further needs at end of eval.
[2018-09-18] MEDS ORDERED: Lisinopril 10 MG TAB PO SCH (14:45)
[2018-09-18] MEDS ORDERED: Amlodipine 5 MG TAB PO SCH (14:45)
[2018-09-18] MEDS: Nicotine 14 MG PATCH TD SCH (15:53)
--- NOTE | 2018-09-18 19:09 | PRG ---
DATE OF SERVICE: 09/18/2018 SUBJECTIVE: Dwight Arguelles says he is feeling much better. He has no new complaints. He is feeling stronger. He started to move around more. OBJECTIVE: LUNGS: Remarkable for distant wheezes. VITAL SIGNS: Stable other than intermittent resting tachycardia for most part. His heart rate has been in the 80s. He is afebrile. Respiratory rate is in the 20s, oximetry is 93 to 98 on room air today, blood pressure 167/82. HEART: Regular rhythm. ABDOMEN: Soft and nontender. LABORATORY DATA: White count 11.3, hemoglobin 12.4, and platelets 177,000. Sodium 139, potassium 4.6, chloride 99, bicarb 37, BUN 22, and creatinine 0.86. IMPRESSION: 1. Chronic obstructive pulmonary disease exacerbation, clinically improving. 2. Tobacco use up until this admission. 3. Hypertension. Medications have been adjusted today. I suspect some of his interstitial marking increases, related to blood pressure, poorly controlled at home. Hopefully, he will be a candidate to go home in 24 to 48 hours. Job ID: [id number]
[2018-09-18] MEDS: Tamsulosin HCl 0.4 MG CAP PO SCH (20:03)
[2018-09-18] MEDS ORDERED: Atorvastatin Calcium 20 MG TAB PO SCH (21:00)
[2018-09-18] MEDS ORDERED: Polyethylene Glycol 3350 17 GM Packet PO SCH (21:00)
[2018-09-18] MEDS ORDERED: Enoxaparin Sodium 40 MG/0.4 ML SYRINGE SC SCH (21:00)
[2018-09-19] MEDS: Levothyroxine Sodium 125 MCG TAB PO SCH (05:17)
[2018-09-19] MEDS ORDERED: Aspirin 81 mg Enteric Coated Tablet PO SCH (09:00)
[2018-09-19] MEDS ORDERED: Lisinopril 10 MG TAB PO SCH (09:00)
[2018-09-19] MEDS ORDERED: Finasteride 5 MG TAB PO SCH (09:00)
[2018-09-19] MEDS ORDERED: Amlodipine 5 MG TAB PO SCH (09:00)
[2018-09-19] MEDS: Mometasone/Formoterol 120 PUFF INHALER INH SCH (10:01)
[2018-09-19] MEDS: Tamsulosin HCl 0.4 MG CAP PO SCH (10:04)
[2018-09-19] MEDS: guaiFENesin ER 600 MG TAB PO SCH (10:04)
[2018-09-19] MEDS: Saccharomyces boulardii 250 MG CAP PO SCH (10:04)
[2018-09-19] MEDS: Clopidogrel Bisulfate 75 MG TAB PO SCH (10:05)
[2018-09-19] MEDS: predniSONE 20 MG TAB PO SCH (10:05)
[2018-09-19] MEDS: Azithromycin 250 MG TAB PO SCH (10:05)
[2018-09-19] MEDS: Cefdinir 300 MG CAP PO SCH (10:05)
[2018-09-19] MEDS: Docusate 100 MG CAP PO SCH (10:05)
[2018-09-19 11:38] VITALS: BP 168/82; TEMP 97.7
--- NOTE | 2018-09-19 19:15 | DIS ---
DATE OF ADMISSION: 09/14/2018 DATE OF DISCHARGE: 09/19/2018 CONSULTANTS: Dr. Rueda, Pulmonology. MEDICATIONS: Medications are reconciled at discharge. Medications to continue; 1. ProAir 2 puffs every 4 hours as needed. 2. Amlodipine 5 mg daily. 3. Aspirin 81 mg daily. 4. Atorvastatin 20 mg daily. 5. Dulcolax 10 mg SD daily as needed. 6. Symbicort 160/4.5 two puffs b.i.d. 7. Plavix 75 mg daily. 8. Finasteride 5 mg daily. 9. Levothyroxine 125 mcg daily. 10. Lisinopril 10 mg daily. 11. Zofran 4 mg every 6 hours as needed for nausea. 12. Protonix 40 mg b.i.d. 13. MiraLAX 17 g daily. 14. Senokot S one tab b.i.d. 15. Tamsulosin 0.4 mg b.i.d. New medications: 1. Florastor 250 mg p.o. daily. Prescription provided for 30 days. 2. Nicotine patch 14 mg transdermal daily x7 days, then 7 mg transdermal patch daily x14 days. 3. DuoNeb 1 neb every 4 hours. Prescription for 1 month and 12 refills. 4. Prednisone 20 mg tablets, 2 tablets daily for 4 days, then 1 tablet daily for 8 days, then 1/2 tablet daily for 8 days. 5. Omnicef 300 mg one p.o. b.i.d. for 7 days. FINAL DIAGNOSES: 1. Acute hypoxic respiratory failure secondary to chronic obstructive pulmonary disease with exacerbation. 2. Pneumonia. 3. Sepsis secondary to above. 4. Acute kidney injury, resolved. SECONDARY DIAGNOSES: 1. Anemia, mild and chronic. 2. Peripheral vascular disease. 3. History of abdominal aortic aneurysm, status post endovascular repair. 4. Gastroesophageal reflux disease. 5. Hypothyroidism. 6. Hypertension. 7. BPH. 8. Dyslipidemia. 9. Tobacco abuse. HISTORY OF PRESENT ILLNESS: Mr. Arguelles is a 73-year-old male with the above medical problems, who presented to the emergency room with worsening shortness of breath, chest tightness, and wheezing. He was found to be hypoxic and started on antibiotics and hospitalist called for admission. HOSPITAL COURSE: The patient was managed on high-dose steroids, nebulizer therapy, and antibiotics during this hospitalization. These medications had been changed over to oral, oxygen has been weaned and patient has tolerated treatment. His breathing status has improved, he is saturating at least 91% on room air with ambulation, and is overall feeling better. He was evaluated by Pulmonology who has directed his care. For other medical problems, the patient's home medications were reconciled yesterday and he was restarted on all of his home medications. Some selective medications were started prior to this, including Plavix, pantoprazole, bowel medications. The patient is improved, ambulating on room air, overall improved and does meet criteria for discharge to home. PHYSICAL EXAMINATION: VITAL SIGNS: Blood pressure prior to medication 172/77, temp 97.9, pulse 70, respirations 20, sats 91% on room air. GENERAL: He is awake, alert, responsive, in no apparent distress. Able to speak in normal sentences. LUNGS: Fair air movement. No audible wheezing, rhonchi, or rales. HEART: Distant heart sounds. No significant murmur. ABDOMEN: Soft with present bowel sounds. Nontender, nondistended. EXTREMITIES: No clubbing, cyanosis, or edema. HOOD FINDINGS AND TEST RESULTS: CBC; 11.3, 12.4, 39.1, 177 on 09/18. Renal panel on 09/18; 139, 4.6, 99, 37, 22, 0.86, 131, calcium 8.6. LFTs; T bilirubin 0.5, AST 28, ALT 13, alkaline phosphatase 102, total protein 6.3, albumin 3.3. Chest x-ray performed on 09/17, shows patchy bilateral airspace disease and other findings are stable. Chest x-ray on 09/14, patchy interstitial opacities greatest in the lung bases. Correlate for edema or infiltrate. FOLLOWUP: 1. Followup is with Dr. Rueda within 2-3 weeks to follow up for breathing and medications. 2. Follow up with the primary care provider, Dr. Burt within a week to review this hospitalization and any other health needs. DIET: Heart healthy. ACTIVITY: As tolerated. DISCHARGE DISPOSITION: Home. CODE STATUS: Full. Reviewed with this patient this hospitalization, the importance of followup and to seek care precautions. He demonstrates understanding. TOTAL TIME COORDINATING DISCHARGE: 35 minutes. Job ID: [id number] [facility]
--- NOTE | 2018-09-19 19:36 | PRG ---
DATE OF SERVICE: 09/19/2018 SUBJECTIVE: Dwight Arguelles says he is close to his baseline. OBJECTIVE: VITAL SIGNS: Stable overnight. GENERAL: He is ambulating around the room. He is on room air. LUNGS: Distant clear. HEART: Regular rhythm. ABDOMEN: Soft. EXTREMITIES: Without edema. NEURO: Nonfocal. I have written a prescription for prednisone to take 40 mg for 4 days, 20 for 8 days, and 10 for 8 days. Prescription for Omnicef to take 7 more days. I wrote a prescription for ipratropium and albuterol for his nebulizer every 4 hours as needed. I have encouraged him to remain active and try to start exercising and walking at home. I will see him back in followup in the office in 3 to 4 weeks if he wishes. He has my phone number. Job ID: [id number]
== END 2018-09-19 12:00 | disposition home or self-care (01) | DRG 871 ==
LOC: ERS 10:07 → ERHOLD 12:08 → 2NO 17:29 → T4-A 09-17 19:24
PROVIDERS: ADMIT Internal Medicine; ATTEND Internal Medicine
DX: A41.9 Sepsis, unspecified organism (principal); J96.01 Acute respiratory failure with hypoxia; J18.9 Pneumonia, unspecified organism; J44.1 Chronic obstructive pulmonary disease with (acute) exacerbation; J44.0 Chronic obstructive pulmonary disease with (acute) lower respiratory infection; N17.9 Acute kidney failure, unspecified; E87.1 Hypo-osmolality and hyponatremia; E87.5 Hyperkalemia; R65.20 Severe sepsis without septic shock; N18.2 Chronic kidney disease, stage 2 (mild); I12.9 Hypertensive chronic kidney disease with stage 1 through stage 4 chronic kidney disease, or unspecified chronic kidney disease; N40.0 Benign prostatic hyperplasia without lower urinary tract symptoms; F17.210 Nicotine dependence, cigarettes, uncomplicated; I25.10 Atherosclerotic heart disease of native coronary artery without angina pectoris; K21.9 Gastro-esophageal reflux disease without esophagitis; E03.9 Hypothyroidism, unspecified; I73.9 Peripheral vascular disease, unspecified; D63.1 Anemia in chronic kidney disease; Z88.8 Allergy status to other drugs, medicaments and biological substances; Z79.899 Other long term (current) drug therapy; Z79.51 Long term (current) use of inhaled steroids; Z95.5 Presence of coronary angioplasty implant and graft; Z88.5 Allergy status to narcotic agent
CPT/HCPCS: 36415; 71045; 74022; 80048; 80053; 82550; 83605; 83690; 83735; 83880; 84484; 85025; 87040; 87070; 87205; 93005; 94760; 96361; 96365; 96366; 96374; 96375; J0456; J0696; J1650; J2405; J2920; J2930; J3490; J7050; J7512; J7620

== ENCOUNTER 2018-10-19 08:11 | Outpatient (CLI) | payer MEDICARE, BC ==
--- NOTE | 2018-10-19 08:30 | RAD ---
RADIOGRAPH CHEST 2 VIEW: DATE: 10/19/2018 HISTORY: 73-year-old male with dyspnea. FINDINGS: There is hyperinflation of the lungs, consistent with COPD. There is no evidence of airspace density, pulmonary edema, cardiomegaly, pleural effusion, or pneumothorax. IMPRESSION: 1) No acute cardiopulmonary findings. 2) emphysema.
== END 2018-10-19 08:12 | disposition home or self-care (01) ==
LOC: RAD 08:11
PROVIDERS: ATTEND Internal Medicine Critical Care Medicine
DX: R06.00 Dyspnea, unspecified (principal); J43.9 Emphysema, unspecified
CPT/HCPCS: 71046

== ENCOUNTER 2020-11-27 07:42 | Outpatient (CLI) | payer MEDICARE, BC ==
[2020-11-27] MEDS ORDERED: Iopamidol-370 76% 500 ML 1 ML ONE (09:14)
== END 2020-11-27 07:43 | disposition home or self-care (01) ==
LOC: BICCT 07:42
PROVIDERS: ATTEND Internal Medicine Cardiovascular Disease
DX: I65.21 Occlusion and stenosis of right carotid artery (principal); I73.9 Peripheral vascular disease, unspecified; I71.4 Abdominal aortic aneurysm, without rupture; I70.203 Unspecified atherosclerosis of native arteries of extremities, bilateral legs; Z95.828 Presence of other vascular implants and grafts
CPT/HCPCS: 75635; 82565; Q9967

== ENCOUNTER 2020-11-30 13:35 | Outpatient (CLI) | payer MEDICARE, BC ==
[~2020-11-30 13:35] MED LIST: Iopamidol-370 76% 500 ML 1 ML ONE
== END 2020-11-30 13:36 | disposition home or self-care (01) ==
LOC: BICCT 13:35
PROVIDERS: ATTEND Internal Medicine Cardiovascular Disease
DX: I65.21 Occlusion and stenosis of right carotid artery (principal); I73.9 Peripheral vascular disease, unspecified
CPT/HCPCS: 70498; Q9967

== ENCOUNTER 2021-01-10 09:04 | Outpatient (CLI) | payer MEDICARE, BC ==
[2021-01-10 11:15] LABS: Anion Gap 14 mmol/L (10-20); BUN (Urea Nitrogen) 17 mg/dL (8.4-25.7); Calc. Creatinine Clearance 0 mL/min (70-130); Calcium 9.4 mg/dL (7.8-10.44); Carbon Dioxide 29 mmol/L (23-31); Chloride 101 mmol/L (98-107); Glucose 88 mg/dL (83-110); Potassium 4.4 mmol/L (3.5-5.1); Sodium 140 mmol/L (136-145)
[2021-01-10 12:12] LABS: Hemoglobin 11.2 g/dL (13.5-17.5); Mean Corpuscular HGB CONC 28.9 g/dL (32.0-36.0); Mean Corpuscular Hemoglobin 22.7 pg (27.0-33.0); Mean Corpuscular Volume 78.7 fl (81.2-95.1); Mean Platelet Volume 10.9 fl (7.4-10.4); Platelet Count 132 10x3/uL (150-450); RBC Distribution Width 18.5 % (11.5-14.5); Red Blood Cell (RBC) Count 4.93 10x6/uL (4.32-5.72); White Blood Cell (WBC) Count 5.1 10x3/uL (3.5-10.5)
[2021-01-10 16:59] LABS: SARS-CoV-2 PCR by NAA Not Detected (NotDetected)
== END 2021-01-10 09:05 | disposition home or self-care (01) ==
LOC: LABBT 09:04
PROVIDERS: ATTEND Thoracic Surgery (Cardiothoracic Vascular Surgery)
DX: Z01.812 Encounter for preprocedural laboratory examination (principal); I65.21 Occlusion and stenosis of right carotid artery; Z20.822 Contact with and (suspected) exposure to COVID-19
CPT/HCPCS: 80048; 85027; U0003; U0005

== ENCOUNTER 2021-01-10 10:30 | Inpatient (IN) | payer MEDICARE, BC ==
[2021-01-14 11:25] VITALS: BMI 24.2
[2021-01-15] MEDS ORDERED: Rocuronium Bromide 10 MG/ML (10ML VIAL) ONE (09:43)
[2021-01-15] MEDS ORDERED: Glycopyrrolate 0.2 MG/ML 5 ML SYRINGE ONE (09:43)
[2021-01-15] MEDS ORDERED: PROPOFOL 200 MG/20 ML VIAL ONE (09:43)
[2021-01-15] MEDS ORDERED: hydrALAZINE 20 MG/ML VIAL SLOW IVP PRN (10:39)
[2021-01-15] MEDS ORDERED: Fentanyl 100 MCG/2 ML VIAL SLOW IVP PRN (10:39)
[2021-01-15] MEDS ORDERED: Phenylephrine 40 MG in Sodium Chloride 0.9% 250 ML 250 ML IVPB SCH (10:39)
[2021-01-15] MEDS ORDERED: Acetaminophen 325 MG TAB PO PRN (10:39)
[2021-01-15] MEDS ORDERED: Ondansetron PF 4 MG/2 ML Vial IVP PRN (10:39)
[2021-01-15] MEDS ORDERED: Promethazine HCl 25 MG/ML VIAL IM PRN ×2 (10:39→11:34)
[2021-01-15] MEDS ORDERED: Nitroglycerin 50 MG/250 ML BOT 250 ML IVPB PRN (10:39)
[2021-01-15] MEDS ORDERED: traMADol HCl 50 MG TAB PO PRN ×2 (10:41)
[2021-01-15] MEDS ORDERED: Mometasone 200 MCG/Formoterol 5 MCG 120 PUFF INHALER INH PRN (10:46)
[2021-01-15] MEDS: Sodium Chloride 0.9% 1,000 ML IV SCH ×2 (11:30→16:33)
[2021-01-15] MEDS ORDERED: Promethazine HCl 25 MG/ML VIAL IVPB PRN (11:34)
[2021-01-15] MEDS ORDERED: Ondansetron HCl/PF 4 MG/2 ML Vial IVP PRN (11:34)
[2021-01-15] MEDS ORDERED: Morphine 2 MG/ML VIAL SLOW IVP PRN (12:15)
[2021-01-15] MEDS ORDERED: Promethazine HCl 12.5 MG in Sodium Chloride 0.9% 50 ML IVPB PRN (12:18)
[2021-01-15] MEDS ORDERED: Promethazine HCl 25 MG in Sodium Chloride 0.9% 50 ML IVPB PRN (12:20)
[2021-01-15] MEDS ORDERED: Morphine 4 MG/ML VIAL SLOW IVP PRN ×2 (12:28→12:29)
[2021-01-15] MEDS ORDERED: Morphine 5 MG/ML SYRINGE SLOW IVP PRN (12:29)
[2021-01-15] MEDS: ceFAZolin Sodium/D5W 2 GM in Premix Bag 1 BAG IVPB SCH (16:33)
[2021-01-15] MEDS: Mometasone 100 MCG/PUFF (1 INHALER) INH SCH (18:20)
[2021-01-16] MEDS: ceFAZolin Sodium/D5W 2 GM in Premix Bag 1 BAG IVPB SCH (02:06)
[2021-01-16 05:29] VITALS: BP 111/58; TEMP 96.8
[2021-01-16] MEDS ORDERED: Levothyroxine Sodium 125 MCG TAB PO SCH (06:00)
[2021-01-16] MEDS: Sodium Chloride 0.9% 1,000 ML IV SCH (06:14)
[2021-01-16] MEDS: Mometasone 100 MCG/PUFF (1 INHALER) INH SCH (06:27)
[2021-01-16] MEDS ORDERED: Amlodipine 5 MG TAB PO SCH (09:00)
[2021-01-16] MEDS ORDERED: Tamsulosin HCl 0.4 MG CAP PO SCH (09:00)
[2021-01-16] MEDS ORDERED: Cholecalciferol 1,000 UNITS (25 MCG) TAB PO SCH (09:00)
[2021-01-16] MEDS ORDERED: Aspirin Chewable 81 MG TAB PO SCH (09:00)
[2021-01-16] MEDS ORDERED: Lisinopril 10 MG TAB PO SCH (09:00)
[2021-01-16] MEDS ORDERED: Clopidogrel Bisulfate 75 MG TAB PO SCH (09:00)
[2021-01-16] MEDS ORDERED: Atorvastatin Calcium 10 MG TAB PO SCH (21:00)
== END 2021-01-16 07:53 | disposition home or self-care (01) | DRG 36 ==
LOC: 2NO 01-15 07:17 → PACU-TCU 01-15 19:26
PROVIDERS: ADMIT Thoracic Surgery (Cardiothoracic Vascular Surgery); ATTEND Thoracic Surgery (Cardiothoracic Vascular Surgery)
PROC: 037H3DZ Dilation of Right Common Carotid Artery with Intraluminal Device, Percutaneous Approach (ICD-10-PCS; principal; 2021-01-15)
PROC: B343ZZ3 Ultrasonography of Right Common Carotid Artery, Intravascular (ICD-10-PCS; 2021-01-15)
PROC: B54NZZA Ultrasonography of Left Upper Extremity Veins, Guidance (ICD-10-PCS; 2021-01-15)
DX: I65.21 Occlusion and stenosis of right carotid artery (principal); Z20.822 Contact with and (suspected) exposure to COVID-19; I10 Essential (primary) hypertension; E78.5 Hyperlipidemia, unspecified; I25.10 Atherosclerotic heart disease of native coronary artery without angina pectoris; E03.9 Hypothyroidism, unspecified; J30.2 Other seasonal allergic rhinitis; F17.210 Nicotine dependence, cigarettes, uncomplicated; N40.0 Benign prostatic hyperplasia without lower urinary tract symptoms; K21.9 Gastro-esophageal reflux disease without esophagitis; J44.9 Chronic obstructive pulmonary disease, unspecified; Z95.5 Presence of coronary angioplasty implant and graft; I25.2 Old myocardial infarction; Z86.718 Personal history of other venous thrombosis and embolism; Z79.82 Long term (current) use of aspirin; Z79.51 Long term (current) use of inhaled steroids; Z79.890 Hormone replacement therapy; Z79.899 Other long term (current) drug therapy
CPT/HCPCS: 76000; 94640; C1725; C1876; C1884; J2550; J2704; J7050; J7620

== ENCOUNTER 2022-04-25 13:54 | Inpatient (IN) | payer MEDICARE, BC ==
[2022-04-25 14:58] LABS: Actual Bicarbonate (HCO3v) 35 mEq/L (22-28); Base Excess 6.5 mEq/L (-2.0 to +3.0); Calcium, Ionized (venous) 1.11 mmol/L (1.16-1.32); Chloride (VBG) 97 mmol/L (98-106); Hemoglobin (Hb) 12.8 g/dL (12.6-17.4); Potassium (VBG) 4.53 mmol/L (3.70-5.30); Sodium 137.1 mmol/L (133-146); pH (venous) 7.33 (7.32-7.43)
[2022-04-25 15:15] LABS: Hemoglobin 11.7 g/dL (14.0-18.0); Mean Corpuscular HGB CONC 29.8 g/dL (32.0-36.0); Mean Corpuscular Hemoglobin 24.2 pg (27.0-31.0); Mean Corpuscular Volume 81.4 fl (78.0-98.0); Mean Platelet Volume 12.1 fL (7.4-10.4); Platelet Count 150 10x3/uL (130-400); Red Blood Cell (RBC) Count 4.81 mill/uL (4.70-6.10)
[2022-04-25] MEDS ORDERED: methylPREDNISolone Sod Succ/PF 125 MG/2 ML VIAL ONE (15:19)
[2022-04-25] MEDS ORDERED: Ipratropium/Albuterol 3 ML NEB ONE (15:19)
[2022-04-25 15:34] LABS: ALT (SGPT) 20 U/L (8-55); AST (SGOT) 30 U/L (5-34); Alkaline Phosphatase 107 U/L (40-110); Anion Gap 18 mmol/L (10-20); BUN (Urea Nitrogen) 18 mg/dL (8.4-25.7); Bilirubin, Total 0.5 mg/dL (0.2-1.2); Calc. Creatinine Clearance 0 mL/min (70-130); Calcium 8.9 mg/dL (7.8-10.44); Carbon Dioxide 26 mmol/L (23-31); Chloride 98 mmol/L (98-107); Estimated GFR 63; Globulin 3.1 g/dL (2.4-3.5); Glucose 103 mg/dL (83-110); Potassium 4.9 mmol/L (3.5-5.1); Protein, Total 7.1 g/dL (5.8-8.1); Sodium 137 mmol/L (136-145)
[2022-04-25 15:43] LABS: Band 9 % (5-11); Eosinophils 1 % (0-10); Lymphocytes 7 % (21-51); MDiff Complete? YES; Monocytes 8 % (0-10); Neutrophil 75 % (42-75); Platelet Morphology Comment Appears Adequate; RBC Morphology Normal
[2022-04-25] MEDS ORDERED: Albuterol 2.5 MG/0.5 ML NEB ONE ×2 (16:06→16:08)
[2022-04-25] MEDS ORDERED: Azithromycin 500 MG VIAL ONE (18:43)
[2022-04-25] MEDS ORDERED: cefTRIAXone\\ROCEPHIN 2 GM VIAL ONE (18:43)
[2022-04-25] MEDS ORDERED: Ipratropium/Albuterol 3 ML NEB NEB PRN ×2 (19:38→19:39)
[2022-04-25] MEDS: Atorvastatin Calcium 20 MG TAB PO SCH (21:00)
[2022-04-26] MEDS: Ipratropium/Albuterol 3 ML NEB NEB SCH ×5 (00:40→22:14)
[2022-04-26 00:59] VITALS: BMI 25.4
[2022-04-26 04:49] LABS: Anion Gap 15 mmol/L (10-20); BUN (Urea Nitrogen) 21 mg/dL (8.4-25.7); Calc. Creatinine Clearance 56 mL/min (70-130); Calcium 8.6 mg/dL (7.8-10.44); Carbon Dioxide 24 mmol/L (23-31); Chloride 101 mmol/L (98-107); Estimated GFR 69; Glucose 232 mg/dL (83-110); Potassium 5.2 mmol/L (3.5-5.1); Sodium 135 mmol/L (136-145)
[2022-04-26] MEDS: Levothyroxine Sodium 125 MCG TAB PO SCH (05:43)
[2022-04-26] MEDS: Atorvastatin Calcium 20 MG TAB PO SCH ×2 (05:43→20:46)
[2022-04-26] MEDS: Mometasone/Formoterol 200/5 60 PUFF INH SCH ×2 (07:20→18:25)
[2022-04-26 08:13] LABS: #Lymphocytes 0.3 thou/uL (1.20-3.40); #Monocytes 0.1 thou/uL (0.11-0.59); #Neutrophils 5.2 thou/uL (1.40-6.50); %Basophils 0.2 % (0.0-1.0); %Eosinophils 0.1 % (0.0-10.0); %Lymphocytes 6.1 % (21.0-51.0); %Monocytes 2.2 % (0.0-10.0); %Neutrophils 91.4 % (42.0-75.0); Hemoglobin 10.7 g/dL (14.0-18.0); Mean Corpuscular HGB CONC 29.8 g/dL (32.0-36.0); Mean Corpuscular Hemoglobin 24.9 pg (27.0-31.0); Mean Corpuscular Volume 83.4 fl (78.0-98.0); Mean Platelet Volume 10.7 fL (7.4-10.4); Platelet Count 169 10x3/uL (130-400); RBC Distribution Width 16.7 % (11.5-14.5); Red Blood Cell (RBC) Count 4.29 mill/uL (4.70-6.10); White Blood Cell (WBC) Count 5.7 10x3/uL (4.8-10.8)
[2022-04-26 08:40] LABS: Hypochromia SLIGHT = 6-15 cells (100X) (0-5/hpf); MDiff Complete? YES; Platelet Morphology Comment Appears Adequate; Polychromasia SLIGHT = 2-3 cells (100X) (0-2/hpf)
[2022-04-26] MEDS ORDERED: Dextrose 50% Abboject 50 ML SYRINGE SLOW IVP PRN (08:41)
[2022-04-26] MEDS ORDERED: Dextrose 5% in Water 1,000 ML IV PRN (08:41)
[2022-04-26] MEDS ORDERED: HumaLOG 300 UNITS/3 ML VIAL SC PRN (08:41)
[2022-04-26] MEDS ORDERED: Dextrose 50% Abboject 50 ML SYRINGE SLOW IVP SCH (08:45)
[2022-04-26] MEDS ORDERED: Insulin Regular 300 UNITS/3 ML VIAL IVP SCH (08:45)
[2022-04-26] MEDS ORDERED: methylPREDNISolone Sod Succ/PF 125 MG/2 ML VIAL IVP SCH (09:00)
[2022-04-26] MEDS ORDERED: FLU VACC QS2022-23(65YR UP)/PF 240 MCG/0.7 ML SYRINGE IM ONE (09:00)
[2022-04-26] MEDS: Amlodipine 5 MG TAB PO SCH (09:30)
[2022-04-26] MEDS: Cholecalciferol 1,000 UNITS (25 MCG) TAB PO SCH (09:30)
[2022-04-26] MEDS: Aspirin Chewable 81 MG TAB PO SCH (09:30)
[2022-04-26] MEDS: Clopidogrel Bisulfate 75 MG TAB PO SCH (09:31)
[2022-04-26] MEDS: Tamsulosin HCl 0.4 MG CAP PO SCH (09:31)
[2022-04-26] MEDS: Lisinopril 10 MG TAB PO SCH (09:31)
[2022-04-26] MEDS: methylPREDNISolone Sod Succ 40 MG VIAL IVP SCH ×3 (12:50→23:48)
[2022-04-26] MEDS ORDERED: methylPREDNISolone Sod Succ 40 MG VIAL IVP SCH (14:00)
[2022-04-26] MEDS ORDERED: Ipratropium/Albuterol 3 ML NEB NEB SCH (14:30)
[2022-04-26] MEDS ORDERED: Theophyllin SR 24HR 100 MG CAP PO SCH (15:00)
[2022-04-26] MEDS: Budesonide 0.5 MG/2 ML NEB NEB SCH (18:24)
[2022-04-26] MEDS: Mometasone 200 MCG/Formoterol 5 MCG 120 PUFF INHALER INH SCH (18:25)
[2022-04-26] MEDS ORDERED: Azithromycin 500 MG in Sodium Chloride 0.9% 250 ML 250 ML IVPB SCH (20:00)
[2022-04-26] MEDS: cefTRIAXone\\ROCEPHIN 2 GM in Sodium Chloride 0.9% 100 ML IVPB SCH (20:46)
[2022-04-27] MEDS: Ipratropium/Albuterol 3 ML NEB NEB SCH ×6 (02:27→22:23)
[2022-04-27] MEDS: Levothyroxine Sodium 125 MCG TAB PO SCH (05:14)
[2022-04-27] MEDS: methylPREDNISolone Sod Succ 40 MG VIAL IVP SCH ×3 (05:14→17:28)
[2022-04-27] MEDS: Mometasone 200 MCG/Formoterol 5 MCG 120 PUFF INHALER INH SCH ×2 (07:13→18:39)
[2022-04-27] MEDS: Budesonide 0.5 MG/2 ML NEB NEB SCH ×2 (07:13→18:37)
[2022-04-27] MEDS: Mometasone/Formoterol 200/5 60 PUFF INH SCH ×2 (07:14→18:38)
[2022-04-27] MEDS: Theophyllin SR 24HR 100 MG CAP PO SCH (08:14)
[2022-04-27] MEDS: Cholecalciferol 1,000 UNITS (25 MCG) TAB PO SCH (08:15)
[2022-04-27] MEDS: Azithromycin 250 MG TAB PO SCH (08:15)
[2022-04-27] MEDS: Tamsulosin HCl 0.4 MG CAP PO SCH (08:16)
[2022-04-27] MEDS: Lisinopril 10 MG TAB PO SCH (08:16)
[2022-04-27] MEDS: Clopidogrel Bisulfate 75 MG TAB PO SCH (08:16)
[2022-04-27] MEDS: Aspirin Chewable 81 MG TAB PO SCH (08:16)
[2022-04-27] MEDS: Amlodipine 5 MG TAB PO SCH (08:16)
[2022-04-27] MEDS ORDERED: Guaifenesin DM 100-10/5 ML UDCUP PO PRN (11:30)
[2022-04-27] MEDS ORDERED: predniSONE 20 MG TAB PO SCH (14:45)
[2022-04-27] MEDS: guaiFENesin/DM ER PO SCH (20:47)
[2022-04-27] MEDS: Atorvastatin Calcium 20 MG TAB PO SCH (20:47)
[2022-04-28] MEDS: methylPREDNISolone Sod Succ 40 MG VIAL IVP SCH ×2 (01:17→05:38)
[2022-04-28] MEDS: cefTRIAXone\\ROCEPHIN 2 GM in Sodium Chloride 0.9% 100 ML IVPB SCH (01:17)
[2022-04-28] MEDS ORDERED: predniSONE 20 MG TAB PO SCH ×3 (01:45→08:23)
[2022-04-28] MEDS: Ipratropium/Albuterol 3 ML NEB NEB SCH ×6 (02:20→23:28)
[2022-04-28 04:57] LABS: BUN (Urea Nitrogen) 23 mg/dL (8.4-25.7); Calc. Creatinine Clearance 58 mL/min (70-130); Calcium 8.8 mg/dL (7.8-10.44); Carbon Dioxide 32 mmol/L (23-31); Chloride 97 mmol/L (98-107); Estimated GFR 73; Glucose 127 mg/dL (83-110); Potassium 4.4 mmol/L (3.5-5.1); Sodium 137 mmol/L (136-145)
[2022-04-28 05:35] LABS: Anion Gap 12 mmol/L (10-20)
[2022-04-28] MEDS: Levothyroxine Sodium 125 MCG TAB PO SCH (05:38)
[2022-04-28] MEDS: Mometasone/Formoterol 200/5 60 PUFF INH SCH ×2 (07:08→19:04)
[2022-04-28] MEDS: Budesonide 0.5 MG/2 ML NEB NEB SCH ×2 (07:08→19:04)
[2022-04-28] MEDS: Mometasone 200 MCG/Formoterol 5 MCG 120 PUFF INHALER INH SCH (07:09)
[2022-04-28] MEDS: Theophyllin SR 24HR 100 MG CAP PO SCH (08:21)
[2022-04-28] MEDS: Amlodipine 5 MG TAB PO SCH (08:21)
[2022-04-28] MEDS: Aspirin Chewable 81 MG TAB PO SCH (08:21)
[2022-04-28] MEDS: Tamsulosin HCl 0.4 MG CAP PO SCH (08:21)
[2022-04-28] MEDS: Azithromycin 250 MG TAB PO SCH (08:21)
[2022-04-28] MEDS: guaiFENesin/DM ER PO SCH ×2 (08:21→21:11)
[2022-04-28] MEDS: Lisinopril 10 MG TAB PO SCH (08:22)
[2022-04-28] MEDS: Clopidogrel Bisulfate 75 MG TAB PO SCH (08:22)
[2022-04-28] MEDS: Cholecalciferol 1,000 UNITS (25 MCG) TAB PO SCH (08:22)
[2022-04-28] MEDS ORDERED: Cefdinir 300 MG CAP PO SCH (11:30)
[2022-04-28 12:32] LABS: Actual Bicarbonate (HCO3v) 34 mEq/L (22-28); Base Excess 7.8 mEq/L (-2.0 to +3.0); Calcium, Ionized (venous) 1.07 mmol/L (1.16-1.32); Chloride (VBG) 94 mmol/L (98-106); Hemoglobin (Hb) 12.8 g/dL (12.6-17.4); Potassium (VBG) 4.43 mmol/L (3.70-5.30); Sodium 134.9 mmol/L (133-146); pH (venous) 7.43 (7.32-7.43)
[2022-04-28] MEDS: Atorvastatin Calcium 20 MG TAB PO SCH (21:11)
[2022-04-28] MEDS: Cefdinir 300 MG CAP PO SCH (21:11)
[2022-04-29] MEDS: Ipratropium/Albuterol 3 ML NEB NEB SCH ×3 (03:30→12:55)
[2022-04-29] MEDS: Levothyroxine Sodium 125 MCG TAB PO SCH (05:20)
[2022-04-29] MEDS: Budesonide 0.5 MG/2 ML NEB NEB SCH (07:33)
[2022-04-29] MEDS: Mometasone/Formoterol 200/5 60 PUFF INH SCH (07:33)
[2022-04-29] MEDS ORDERED: predniSONE 20 MG TAB PO SCH (08:00)
[2022-04-29] MEDS: Aspirin Chewable 81 MG TAB PO SCH (08:56)
[2022-04-29] MEDS: Cefdinir 300 MG CAP PO SCH (08:56)
[2022-04-29] MEDS: Azithromycin 250 MG TAB PO SCH (08:56)
[2022-04-29] MEDS: Cholecalciferol 1,000 UNITS (25 MCG) TAB PO SCH (08:56)
[2022-04-29] MEDS: guaiFENesin/DM ER PO SCH (08:57)
[2022-04-29] MEDS: Lisinopril 10 MG TAB PO SCH (08:57)
[2022-04-29] MEDS: Tamsulosin HCl 0.4 MG CAP PO SCH (08:57)
[2022-04-29] MEDS: Amlodipine 5 MG TAB PO SCH (08:57)
[2022-04-29] MEDS: Clopidogrel Bisulfate 75 MG TAB PO SCH (08:57)
[2022-04-29 12:15] VITALS: BP 147/80; TEMP 97.5
== END 2022-04-29 12:55 | disposition home or self-care (01) | DRG 193 ==
LOC: ERS 13:54 → 2NO 19:58
PROVIDERS: ADMIT Internal Medicine; ATTEND Internal Medicine
DX: J15.9 Unspecified bacterial pneumonia (principal); I50.23 Acute on chronic systolic (congestive) heart failure; J96.21 Acute and chronic respiratory failure with hypoxia; J96.22 Acute and chronic respiratory failure with hypercapnia; J44.0 Chronic obstructive pulmonary disease with (acute) lower respiratory infection; J44.1 Chronic obstructive pulmonary disease with (acute) exacerbation; N17.9 Acute kidney failure, unspecified; Z20.822 Contact with and (suspected) exposure to COVID-19; I11.0 Hypertensive heart disease with heart failure; I25.10 Atherosclerotic heart disease of native coronary artery without angina pectoris; E89.0 Postprocedural hypothyroidism; F17.210 Nicotine dependence, cigarettes, uncomplicated; E87.5 Hyperkalemia; R00.1 Bradycardia, unspecified; Z98.890 Other specified postprocedural states; Z95.5 Presence of coronary angioplasty implant and graft; Z79.899 Other long term (current) drug therapy; Z79.02 Long term (current) use of antithrombotics/antiplatelets; Z79.51 Long term (current) use of inhaled steroids; Z79.82 Long term (current) use of aspirin; Z79.890 Hormone replacement therapy; B34.9 Viral infection, unspecified
CPT/HCPCS: 36415; 36416; 71045; 71275; 80048; 80053; 82805; 83605; 83880; 84145; 84484; 85025; 87040; 93005; 94640; 94644; 94660; 96365; 96375; J0456; J0696; J1650; J1815; J2920; J2930; J3490; J7512; J7611; J7620; J7626; J7999; Q9967; U0003; U0005

== ENCOUNTER 2022-08-27 08:26 | Outpatient (CLI) | payer MEDICARE, BC ==
[2022-08-27] MEDS ORDERED: Iopamidol 370 76% 100 ML VIAL ONE (10:23)
== END 2022-08-27 08:27 | disposition home or self-care (01) ==
LOC: CT 08:26
PROVIDERS: ATTEND Thoracic Surgery (Cardiothoracic Vascular Surgery)
DX: I70.213 Atherosclerosis of native arteries of extremities with intermittent claudication, bilateral legs (principal); I70.90 Unspecified atherosclerosis; T82.390A Other mechanical complication of aortic (bifurcation) graft (replacement), initial encounter
CPT/HCPCS: 75635; 82565; Q9967

== ENCOUNTER 2022-09-22 18:31 | Inpatient (IN) | payer MEDICARE, BC ==
[2022-09-22] MEDS ORDERED: Ondansetron PF 4 MG/2 ML Vial ONE (19:46)
[2022-09-22 20:17] LABS: #Basophils 0.1 thou/uL (0.0-0.2); #Monocytes 0.8 thou/uL (0.11-0.59); #Neutrophils 17.1 thou/uL (1.40-6.50); %Basophils 0.3 % (0.0-1.0); %Lymphocytes 1.9 % (21.0-51.0); %Monocytes 4.1 % (0.0-10.0); %Neutrophils 93.1 % (42.0-75.0); Hemoglobin 7.3 g/dL (14.0-18.0); Mean Corpuscular HGB CONC 27.1 g/dL (32.0-36.0); Mean Corpuscular Volume 73.7 fl (78.0-98.0); Mean Platelet Volume 10.6 fL (7.4-10.4); Platelet Count 335 10x3/uL (130-400); RBC Distribution Width 20.1 % (11.5-14.5); Red Blood Cell (RBC) Count 3.65 mill/uL (4.70-6.10); White Blood Cell (WBC) Count 18.4 10x3/uL (4.8-10.8)
[2022-09-22 20:41] LABS: ALT (SGPT) 22 U/L (8-55); AST (SGOT) 26 U/L (5-34); Albumin 3.9 g/dL (3.4-4.8); Alkaline Phosphatase 119 U/L (40-110); Anion Gap 15 mmol/L (10-20); BUN (Urea Nitrogen) 29 mg/dL (8.4-25.7); Bilirubin, Total 0.4 mg/dL (0.2-1.2); Calc. Creatinine Clearance 0 mL/min (70-130); Calcium 9.1 mg/dL (7.8-10.44); Carbon Dioxide 24 mmol/L (23-31); Chloride 99 mmol/L (98-107); Estimated GFR 23; Globulin 2.6 g/dL (2.4-3.5); Glucose 123 mg/dL (83-110); Potassium 4.7 mmol/L (3.5-5.1); Protein, Total 6.5 g/dL (5.8-8.1); Sodium 133 mmol/L (136-145)
[2022-09-22 20:46] LABS: Anisocytosis SLIGHT = 6-15 cells HPF (0-5); Hypochromia SLIGHT = 6-15 cells HPF (0-5); Microcytosis SLIGHT = 6-15 cells HPF (0-5); Ovalocytes SLIGHT = 2-5 cells HPF (0-1); Platelet Adequacy Comment Platelets Normal; Polychromasia SLIGHT = 2-3 cells HPF (0-2); Tear Drops SLIGHT = 2-5 cells HPF (0-1)
[2022-09-22] MEDS ORDERED: Morphine 4 MG/ML VIAL ONE (21:37)
[2022-09-22] MEDS ORDERED: Pantoprazole 40 MG VIAL ONE (22:56)
[2022-09-22 23:36] LABS: Lactic Acid 0.7 mmol/L (0.5-2.2)
[2022-09-23] MEDS ORDERED: Piperacillin/Tazobactam 4.5 GM VIAL ONE (00:23)
[2022-09-23] MEDS ORDERED: Ondansetron PF 4 MG/2 ML Vial IVP PRN (01:03)
[2022-09-23] MEDS ORDERED: Acetaminophen 325 MG TAB PO PRN (01:03)
[2022-09-23] MEDS ORDERED: Ipratropium/Albuterol 3 ML NEB EZPAP PRN (01:09)
[2022-09-23] MEDS ORDERED: Sodium Chloride 0.9% 1,000 ML IV SCH (01:15)
[2022-09-23] MEDS ORDERED: Vancomycin Dose by Levels Sliding Scale (Wt <71) FS SCH (01:45)
[2022-09-23] MEDS ORDERED: VANCOMYCIN 1.25 GM/250 ML BAG 1.25 GM in Premix Bag 1 BAG IVPB SCH (02:00)
[2022-09-23] MEDS: Sodium Chloride 0.9% 1,000 ML IV SCH ×4 (03:02→21:58)
[2022-09-23] MEDS ORDERED: Morphine 4 MG/ML VIAL SLOW IVP SCH (04:30)
[2022-09-23] MEDS ORDERED: Morphine 2 MG/ML VIAL ONE (04:38)
[2022-09-23] MEDS ORDERED: Piperacillin/Tazobactam 3.375 GM VIAL ONE ×2 (04:38→13:33)
[2022-09-23] MEDS: Piperacillin/Tazobactam 3.375 GM in Sodium Chloride 0.9% 100 ML IVPB SCH ×3 (04:47→21:58)
[2022-09-23 04:58] LABS: #Monocytes 0.7 thou/uL (0.11-0.59); #Neutrophils 16.4 thou/uL (1.40-6.50); %Basophils 0.2 % (0.0-1.0); %Monocytes 3.9 % (0.0-10.0); %Neutrophils 91.3 % (42.0-75.0); Mean Corpuscular HGB CONC 27.5 g/dL (32.0-36.0); Mean Corpuscular Hemoglobin 20.2 pg (27.0-31.0); Mean Platelet Volume 10.8 fL (7.4-10.4); Platelet Count 320 10x3/uL (130-400); RBC Distribution Width 20.1 % (11.5-14.5); Red Blood Cell (RBC) Count 3.46 mill/uL (4.70-6.10); White Blood Cell (WBC) Count 17.9 10x3/uL (4.8-10.8)
[2022-09-23 05:03] LABS: Mean Corpuscular Volume 73.7 fl (78.0-98.0)
[2022-09-23] MEDS: Ipratropium/Albuterol 3 ML NEB NEB SCH ×7 (05:04→22:44)
[2022-09-23 05:12] LABS: INR-International Normal Ratio 1.1; Prothrombin Time 14.8 sec (12.0-14.7)
[2022-09-23 05:13] LABS: PTT 28.9 sec (22.9-36.1)
[2022-09-23 05:22] LABS: Anion Gap 16 mmol/L (10-20); BUN (Urea Nitrogen) 29 mg/dL (8.4-25.7); Calc. Creatinine Clearance 0 mL/min (70-130); Calcium 8.5 mg/dL (7.8-10.44); Carbon Dioxide 21 mmol/L (23-31); Chloride 104 mmol/L (98-107); Estimated GFR 26; Glucose 101 mg/dL (83-110); Potassium 5.2 mmol/L (3.5-5.1); Sodium 136 mmol/L (136-145)
[2022-09-23] MEDS ORDERED: Mometasone 200 MCG/Formoterol 5 MCG 120 PUFF INHALER INH SCH (06:30)
[2022-09-23] MEDS ORDERED: Sodium Chloride 0.9% 500 ML IV SCH (06:45)
[2022-09-23] MEDS ORDERED: fentaNYL 50 mcg/mL 1 mL Vial SLOW IVP PRN (09:54)
[2022-09-23] MEDS ORDERED: Ipratropium/Albuterol 3 ML NEB ONE (09:57)
[2022-09-23 13:56] LABS: Anion Gap 11 mmol/L (10-20); BUN (Urea Nitrogen) 25 mg/dL (8.4-25.7); Calc. Creatinine Clearance 0 mL/min (70-130); Calcium 8.2 mg/dL (7.8-10.44); Carbon Dioxide 24 mmol/L (23-31); Chloride 107 mmol/L (98-107); Estimated GFR 31; Glucose 96 mg/dL (83-110); Potassium 4.5 mmol/L (3.5-5.1); Sodium 137 mmol/L (136-145)
[2022-09-23 14:32] VITALS: BMI 23.6
[2022-09-23] MEDS: Pantoprazole 40 MG VIAL IVP SCH ×2 (15:42→21:58)
[2022-09-23] MEDS: Budesonide 0.5 MG/2 ML NEB NEB SCH (19:17)
[2022-09-23] MEDS: Arformoterol 15 MCG/2 ML NEB NEB SCH (19:20)
[2022-09-23 19:41] LABS: Campy jejuni + coli by PCR Negative (Negative); STEC Shiga Toxin 1+2 Negative (Negative); Salmonella spp. by PCR Negative (Negative); Shigella spp + EIEC by PCR Negative (Negative)
[2022-09-23 19:52] LABS: Hemoglobin 7.7 g/dL (14.0-18.0)
[2022-09-23 20:13] LABS: Anion Gap 9 mmol/L (10-20); BUN (Urea Nitrogen) 23 mg/dL (8.4-25.7); Calc. Creatinine Clearance 31 mL/min (70-130); Calcium 8.2 mg/dL (7.8-10.44); Carbon Dioxide 25 mmol/L (23-31); Chloride 104 mmol/L (98-107); Estimated GFR 37; Glucose 115 mg/dL (83-110); Potassium 4.4 mmol/L (3.5-5.1); Sodium 134 mmol/L (136-145)
[2022-09-24] MEDS: Ipratropium/Albuterol 3 ML NEB NEB SCH ×6 (00:39→21:47)
[2022-09-24 01:18] LABS: Vancomycin, Random 6.4 ug/mL (See Comment)
[2022-09-24] MEDS ORDERED: Vancomycin HCl 750 MG in Sodium Chloride 0.9% 250 ML 250 ML IVPB SCH (02:00)
[2022-09-24] MEDS: Piperacillin/Tazobactam 3.375 GM in Sodium Chloride 0.9% 100 ML IVPB SCH ×3 (04:27→20:46)
[2022-09-24 05:06] LABS: #Basophils 0.1 thou/uL (0.0-0.2); #Monocytes 0.7 thou/uL (0.11-0.59); #Neutrophils 18.5 thou/uL (1.40-6.50); %Basophils 0.3 % (0.0-1.0); %Eosinophils 0.1 % (0.0-10.0); %Lymphocytes 4.9 % (21.0-51.0); %Monocytes 3.5 % (0.0-10.0); %Neutrophils 90.7 % (42.0-75.0); Hemoglobin 7.5 g/dL (14.0-18.0); Mean Corpuscular Hemoglobin 21.9 pg (27.0-31.0); Mean Corpuscular Volume 76.3 fl (78.0-98.0); Mean Platelet Volume 10.3 fL (7.4-10.4); Platelet Count 273 10x3/uL (130-400); RBC Distribution Width 21.3 % (11.5-14.5); Red Blood Cell (RBC) Count 3.42 mill/uL (4.70-6.10); White Blood Cell (WBC) Count 20.4 10x3/uL (4.8-10.8)
[2022-09-24 05:08] LABS: Mean Corpuscular HGB CONC 28.7 g/dL (32.0-36.0)
[2022-09-24] MEDS: Levothyroxine Sodium 112 MCG TAB PO SCH (06:01)
[2022-09-24] MEDS: Budesonide 0.5 MG/2 ML NEB NEB SCH ×2 (07:26→19:05)
[2022-09-24] MEDS: Arformoterol 15 MCG/2 ML NEB NEB SCH ×2 (07:26→19:04)
[2022-09-24] MEDS: Sodium Chloride 0.9% 1,000 ML IV SCH ×2 (08:58→20:47)
[2022-09-24] MEDS: Pantoprazole 40 MG VIAL IVP SCH ×2 (09:01→20:46)
[2022-09-24 15:00] LABS: Hemoglobin 7.6 g/dL (14.0-18.0)
[2022-09-25 01:57] LABS: Vancomycin, Random 5.9 ug/mL (See Comment)
[2022-09-25] MEDS: Ipratropium/Albuterol 3 ML NEB NEB SCH ×6 (02:04→21:52)
[2022-09-25] MEDS ORDERED: Vancomycin 1 GM in Premix Bag 1 BAG IVPB SCH (02:30)
[2022-09-25 04:14] LABS: #Basophils 0.1 thou/uL (0.0-0.2); #Eosinphils 0.1 thou/uL (0.0-0.7); #Monocytes 0.5 thou/uL (0.11-0.59); #Neutrophils 12.8 thou/uL (1.40-6.50); %Basophils 0.4 % (0.0-1.0); %Eosinophils 0.4 % (0.0-10.0); %Lymphocytes 7.3 % (21.0-51.0); %Monocytes 3.6 % (0.0-10.0); %Neutrophils 87.8 % (42.0-75.0); Hemoglobin 7.4 g/dL (14.0-18.0); Mean Corpuscular Hemoglobin 21.6 pg (27.0-31.0); Mean Corpuscular Volume 77.2 fl (78.0-98.0); Mean Platelet Volume 10.4 fL (7.4-10.4); Platelet Count 282 10x3/uL (130-400); RBC Distribution Width 21.4 % (11.5-14.5); Red Blood Cell (RBC) Count 3.42 mill/uL (4.70-6.10); White Blood Cell (WBC) Count 14.6 10x3/uL (4.8-10.8)
[2022-09-25 04:35] LABS: Anion Gap 12 mmol/L (10-20); BUN (Urea Nitrogen) 11 mg/dL (8.4-25.7); Calc. Creatinine Clearance 44 mL/min (70-130); Calcium 8.1 mg/dL (7.8-10.44); Carbon Dioxide 24 mmol/L (23-31); Chloride 103 mmol/L (98-107); Estimated GFR 56; Glucose 102 mg/dL (83-110); Potassium 3.8 mmol/L (3.5-5.1); Sodium 135 mmol/L (136-145)
[2022-09-25] MEDS: Levothyroxine Sodium 112 MCG TAB PO SCH (04:55)
[2022-09-25] MEDS: Piperacillin/Tazobactam 3.375 GM in Sodium Chloride 0.9% 100 ML IVPB SCH ×3 (04:56→19:46)
[2022-09-25] MEDS: Budesonide 0.5 MG/2 ML NEB NEB SCH ×2 (07:27→18:38)
[2022-09-25] MEDS: Arformoterol 15 MCG/2 ML NEB NEB SCH ×2 (07:27→18:38)
[2022-09-25] MEDS: Atorvastatin Calcium 20 MG TAB PO SCH (08:49)
[2022-09-25] MEDS: Tamsulosin HCl 0.4 MG CAP PO SCH (08:50)
[2022-09-25] MEDS: Pantoprazole 40 MG VIAL IVP SCH ×2 (08:50→19:47)
[2022-09-25] MEDS ORDERED: Atorvastatin Calcium 10 MG TAB PO SCH (09:00)
[2022-09-25] MEDS: Sodium Chloride 0.9% 1,000 ML IV SCH ×2 (11:47→21:58)
[2022-09-26 01:52] LABS: Vancomycin, Trough 8.9 ug/mL
[2022-09-26] MEDS: Ipratropium/Albuterol 3 ML NEB NEB SCH ×4 (02:20→15:20)
[2022-09-26] MEDS ORDERED: VANCOMYCIN 1.25 GM/250 ML BAG 1.25 GM in Premix Bag 1 BAG IVPB SCH (04:00)
[2022-09-26] MEDS: Piperacillin/Tazobactam 3.375 GM in Sodium Chloride 0.9% 100 ML IVPB SCH ×2 (04:17→12:54)
[2022-09-26] MEDS: Levothyroxine Sodium 112 MCG TAB PO SCH (06:04)
[2022-09-26] MEDS: Arformoterol 15 MCG/2 ML NEB NEB SCH (07:53)
[2022-09-26] MEDS: Budesonide 0.5 MG/2 ML NEB NEB SCH (07:53)
[2022-09-26] MEDS: Tamsulosin HCl 0.4 MG CAP PO SCH (10:05)
[2022-09-26] MEDS: Atorvastatin Calcium 20 MG TAB PO SCH (10:05)
[2022-09-26] MEDS: Pantoprazole 40 MG VIAL IVP SCH (10:06)
[2022-09-26 12:15] VITALS: BP 138/63; TEMP 97.6
[2022-09-26] MEDS: Sodium Chloride 0.9% 1,000 ML IV SCH (15:42)
== END 2022-09-26 17:18 | disposition home or self-care (01) | DRG 394 ==
LOC: ERS 18:31 → ERHOLD 09-23 00:47 → OBSVTOIN 09-23 09:04 → 2NO 09-23 14:31
PROVIDERS: ADMIT Internal Medicine; ATTEND Family Medicine
PROC: 30233N1 Transfusion of Nonautologous Red Blood Cells into Peripheral Vein, Percutaneous Approach (ICD-10-PCS; principal; 2022-09-23)
DX: K55.9 Vascular disorder of intestine, unspecified (principal); D62 Acute posthemorrhagic anemia; E87.20 Acidosis, unspecified; N17.9 Acute kidney failure, unspecified; L03.115 Cellulitis of right lower limb; T81.49XA Infection following a procedure, other surgical site, initial encounter; J44.1 Chronic obstructive pulmonary disease with (acute) exacerbation; J96.11 Chronic respiratory failure with hypoxia; I25.10 Atherosclerotic heart disease of native coronary artery without angina pectoris; J44.9 Chronic obstructive pulmonary disease, unspecified; I73.9 Peripheral vascular disease, unspecified; I10 Essential (primary) hypertension; E03.9 Hypothyroidism, unspecified; F17.210 Nicotine dependence, cigarettes, uncomplicated; E87.5 Hyperkalemia; Z88.8 Allergy status to other drugs, medicaments and biological substances; Z79.82 Long term (current) use of aspirin; Z79.899 Other long term (current) drug therapy; Z98.890 Other specified postprocedural states
CPT/HCPCS: 36415; 36430; 74176; 80048; 80053; 80202; 82274; 83605; 83880; 84443; 84484; 85025; 85610; 85730; 86850; 86900; 86901; 87040; 87324; 87449; 87505; 93005; 94640; 96361; 96365; 96366; 96375; C9113; J2270; J2272; J2405; J2543; J3370; J3370-JW; J3490; J7030; J7050; J7620; J7626; P9016

== ENCOUNTER 2023-03-30 11:20 | Inpatient (IN) | payer MEDICARE, BC ==
[2023-03-30] MEDS ORDERED: methylPREDNISolone Sod Succ/PF 125 MG/2 ML VIAL ONE (11:37)
[2023-03-30] MEDS ORDERED: Ipratropium/Albuterol 3 ML NEB ONE ×2 (11:37→11:43)
[2023-03-30] MEDS ORDERED: Magnesium 2 GM/50 ML BAG (IN WATER) ONE (11:37)
[2023-03-30 11:55] LABS: Hematocrit 43.2 % (42.0-52.0); Hemoglobin 12.2 g/dL (14.0-18.0); Manual Diff?? YES; Mean Corpuscular HGB CONC 28.2 g/dL (32.0-36.0); Mean Corpuscular Hemoglobin 24.1 pg (27.0-31.0); Mean Corpuscular Volume 85.2 fl (78.0-98.0); Platelet Count 106 10x3/uL (130-400); RBC Distribution Width 22.4 % (11.5-14.5); Red Blood Cell (RBC) Count 5.07 mill/uL (4.70-6.10)
[2023-03-30 11:56] LABS: Delete Auto Diff?? YES
[2023-03-30 12:16] LABS: Anisocytosis SLIGHT = 6-15 cells HPF (0-5); Band 12 % (5-11); CellaVision Operator ID LAB.KB; Hypochromia SLIGHT = 6-15 cells HPF (0-5); Lymphocytes 3 % (21-51); Monocytes 3 % (0-10); Neutrophil 79 % (42-75); Ovalocytes SLIGHT = 2-5 cells HPF (0-1); Platelet Adequacy Comment Platelets Decreased; Polychromasia SLIGHT = 2-3 cells HPF (0-2); Reactive Lymphocytes 3 % (0-10); Total Cell Count 99
[2023-03-30 12:23] LABS: Troponin I Less than 0.010 ng/mL (< 0.028)
[2023-03-30 12:26] LABS: ALT (SGPT) Less than 7 U/L (8-55); AST (SGOT) 12 U/L (5-34); Albumin 4.5 g/dL (3.4-4.8); Alkaline Phosphatase 93 U/L (40-110); Anion Gap 15 mmol/L (10-20); BUN (Urea Nitrogen) 14 mg/dL (8.4-25.7); Bilirubin, Total 0.8 mg/dL (0.2-1.2); Calc. Creatinine Clearance 0 mL/min (70-130); Carbon Dioxide 32 mmol/L (23-31); Chloride 97 mmol/L (98-107); Estimated GFR 47; Globulin 2.5 g/dL (2.4-3.5); Glucose 198 mg/dL (83-110); Potassium 4.5 mmol/L (3.5-5.1); Sodium 139 mmol/L (136-145)
[2023-03-30] MEDS ORDERED: cefTRIAXone (ROCEPHIN) 1 GM VIAL ONE (12:27)
[2023-03-30] MEDS ORDERED: Azithromycin 500 MG VIAL ONE (12:27)
[2023-03-30] MEDS ORDERED: Sodium Chloride 0.9% 100 ML ONE (12:27)
[2023-03-30] MEDS ORDERED: Ondansetron ODT 4 MG TAB PO PRN (13:59)
[2023-03-30] MEDS ORDERED: Ondansetron PF 4 MG/2 ML Vial IVP PRN (13:59)
[2023-03-30] MEDS ORDERED: Sodium Chloride 0.9% 1,000 ML IV SCH (14:00)
[2023-03-30 15:42] VITALS: BMI 23.5
[2023-03-30] MEDS: methylPREDNISolone Sod Succ 40 MG VIAL IVP SCH (17:59)
[2023-03-30] MEDS: Nicotine 14 MG PATCH TD SCH (18:00)
[2023-03-30] MEDS: Ipratropium/Albuterol 3 ML NEB NEB SCH (19:29)
[2023-03-31] MEDS: methylPREDNISolone Sod Succ 40 MG VIAL IVP SCH ×4 (00:25→17:41)
[2023-03-31] MEDS: Ipratropium/Albuterol 3 ML NEB NEB SCH ×4 (01:56→19:04)
[2023-03-31 05:14] LABS: #Monocytes 0.1 thou/uL (0.11-0.59); #Neutrophils 9.2 thou/uL (1.40-6.50); %Basophils 0.1 % (0.0-1.0); %Lymphocytes 4.1 % (21.0-51.0); %Monocytes 0.7 % (0.0-10.0); %Neutrophils 94.3 % (42.0-75.0); Hematocrit 39.8 % (42.0-52.0); Mean Corpuscular HGB CONC 27.6 g/dL (32.0-36.0); Mean Corpuscular Hemoglobin 24.2 pg (27.0-31.0); Mean Corpuscular Volume 87.5 fl (78.0-98.0); RBC Distribution Width 21.5 % (11.5-14.5); Red Blood Cell (RBC) Count 4.55 mill/uL (4.70-6.10); White Blood Cell (WBC) Count 9.8 10x3/uL (4.8-10.8)
[2023-03-31 05:40] LABS: Anion Gap 12 mmol/L (10-20); BUN (Urea Nitrogen) 14 mg/dL (8.4-25.7); Calc. Creatinine Clearance 60 mL/min (70-130); Calcium 8.3 mg/dL (7.8-10.44); Carbon Dioxide 24 mmol/L (23-31); Chloride 106 mmol/L (98-107); Estimated GFR 82; Glucose 145 mg/dL (83-110); Potassium 4.6 mmol/L (3.5-5.1); Sodium 137 mmol/L (136-145)
[2023-03-31 06:09] LABS: Platelet Count 84 10x3/uL (130-400)
[2023-03-31] MEDS ORDERED: Furosemide 40 MG/4 ML VIAL SLOW IVP SCH (10:00)
[2023-03-31] MEDS ORDERED: guaiFENesin ER 600 MG TAB PO SCH (10:15)
[2023-03-31] MEDS: cefTRIAXone\\ROCEPHIN 1 GM in Sodium Chloride 0.9% 100 ML IVPB SCH (11:47)
[2023-03-31] MEDS ORDERED: Sodium Chloride 0.9% 100 ML ONE (13:28)
[2023-03-31] MEDS: Azithromycin 500 MG in Sodium Chloride 0.9% 250 ML 250 ML IVPB SCH (13:40)
[2023-03-31] MEDS: Nicotine 14 MG PATCH TD SCH ×2 (16:00→16:38)
[2023-03-31] MEDS: Mometasone 100 MCG HFA INHALER (RT USE) INH SCH (19:06)
[2023-03-31] MEDS: Tamsulosin HCl 0.4 MG CAP PO SCH (20:40)
[2023-03-31] MEDS: guaiFENesin ER 600 MG TAB PO SCH (20:40)
[2023-04-01] MEDS: methylPREDNISolone Sod Succ 40 MG VIAL IVP SCH ×4 (01:32→18:16)
[2023-04-01] MEDS: Ipratropium/Albuterol 3 ML NEB NEB SCH ×5 (01:46→23:33)
[2023-04-01 05:57] LABS: #Monocytes 0.1 thou/uL (0.11-0.59); #Neutrophils 8.5 thou/uL (1.40-6.50); %Lymphocytes 3.4 % (21.0-51.0); %Monocytes 1.4 % (0.0-10.0); %Neutrophils 94.2 % (42.0-75.0); Hematocrit 36.3 % (42.0-52.0); Hemoglobin 10.2 g/dL (14.0-18.0); Mean Corpuscular HGB CONC 28.1 g/dL (32.0-36.0); Mean Corpuscular Hemoglobin 23.9 pg (27.0-31.0); Platelet Count 96 10x3/uL (130-400); RBC Distribution Width 21.2 % (11.5-14.5); Red Blood Cell (RBC) Count 4.27 mill/uL (4.70-6.10)
[2023-04-01] MEDS: Levothyroxine Sodium 112 MCG TAB PO SCH (06:25)
[2023-04-01 06:34] LABS: Anisocytosis SLIGHT = 6-15 cells HPF (0-5); CellaVision Operator ID LAB.GE; Platelet Adequacy Comment Platelets Decreased; Polychromasia SLIGHT = 2-3 cells HPF (0-2)
[2023-04-01] MEDS: Mometasone 100 MCG HFA INHALER (RT USE) INH SCH ×2 (08:06→19:12)
[2023-04-01 08:23] LABS: Anion Gap 12 mmol/L (10-20); BUN (Urea Nitrogen) 19 mg/dL (8.4-25.7); Calc. Creatinine Clearance 56 mL/min (70-130); Calcium 8.2 mg/dL (7.8-10.44); Carbon Dioxide 28 mmol/L (23-31); Chloride 102 mmol/L (98-107); Estimated GFR 77; Glucose 141 mg/dL (83-110); Potassium 4.2 mmol/L (3.5-5.1); Sodium 138 mmol/L (136-145)
[2023-04-01] MEDS: Tamsulosin HCl 0.4 MG CAP PO SCH ×2 (09:13→20:31)
[2023-04-01] MEDS: Atorvastatin Calcium 20 MG TAB PO SCH (09:14)
[2023-04-01] MEDS: Lisinopril 10 MG TAB PO SCH (09:14)
[2023-04-01] MEDS: Clopidogrel Bisulfate 75 MG TAB PO SCH (09:14)
[2023-04-01] MEDS: Amlodipine 5 MG TAB PO SCH (09:14)
[2023-04-01] MEDS: Cholecalciferol 1,000 UNITS (25 MCG) TAB PO SCH (09:15)
[2023-04-01] MEDS: Aspirin Chewable 81 MG TAB PO SCH (09:15)
[2023-04-01] MEDS: guaiFENesin ER 600 MG TAB PO SCH ×2 (09:16→20:31)
[2023-04-01] MEDS: Ferrous Sulfate 325 MG TAB PO SCH (09:16)
[2023-04-01] MEDS: Ascorbic Acid 500 mg Chewable Tablet PO SCH (09:17)
[2023-04-01] MEDS: cefTRIAXone\\ROCEPHIN 1 GM in Sodium Chloride 0.9% 100 ML IVPB SCH (12:44)
[2023-04-01] MEDS: Azithromycin 500 MG in Sodium Chloride 0.9% 250 ML 250 ML IVPB SCH (14:16)
[2023-04-01] MEDS: Nicotine 14 MG PATCH TD SCH (15:29)
[2023-04-02] MEDS: methylPREDNISolone Sod Succ 40 MG VIAL IVP SCH ×3 (00:47→21:32)
[2023-04-02 04:57] LABS: #Monocytes 0.1 thou/uL (0.11-0.59); #Neutrophils 6.4 thou/uL (1.40-6.50); %Basophils 0.1 % (0.0-1.0); %Lymphocytes 3.7 % (21.0-51.0); %Monocytes 1.6 % (0.0-10.0); Hematocrit 35.6 % (42.0-52.0); Hemoglobin 10.2 g/dL (14.0-18.0); Mean Corpuscular HGB CONC 28.7 g/dL (32.0-36.0); Mean Corpuscular Hemoglobin 23.9 pg (27.0-31.0); Mean Corpuscular Volume 83.6 fl (78.0-98.0); RBC Distribution Width 21.2 % (11.5-14.5); Red Blood Cell (RBC) Count 4.26 mill/uL (4.70-6.10); White Blood Cell (WBC) Count 6.8 10x3/uL (4.8-10.8)
[2023-04-02 05:16] LABS: Anion Gap 13 mmol/L (10-20); BUN (Urea Nitrogen) 20 mg/dL (8.4-25.7); Calc. Creatinine Clearance 57 mL/min (70-130); Calcium 8.1 mg/dL (7.8-10.44); Carbon Dioxide 27 mmol/L (23-31); Chloride 101 mmol/L (98-107); Estimated GFR 78; Glucose 148 mg/dL (83-110); Potassium 4.2 mmol/L (3.5-5.1); Sodium 137 mmol/L (136-145)
[2023-04-02 05:49] LABS: Platelet Count 109 10x3/uL (130-400)
[2023-04-02] MEDS: Levothyroxine Sodium 112 MCG TAB PO SCH (06:10)
[2023-04-02] MEDS: Ipratropium/Albuterol 3 ML NEB NEB SCH ×4 (06:18→23:13)
[2023-04-02] MEDS: Mometasone 100 MCG HFA INHALER (RT USE) INH SCH ×2 (06:20→19:07)
[2023-04-02] MEDS ORDERED: FLU VACC QS2023(65UP)/MF59C/PF 60 MCG/0.5 ML SYRINGE IM ONE (09:00)
[2023-04-02] MEDS: Ascorbic Acid 500 mg Chewable Tablet PO SCH (09:05)
[2023-04-02] MEDS: Lisinopril 10 MG TAB PO SCH (09:05)
[2023-04-02] MEDS: Aspirin Chewable 81 MG TAB PO SCH (09:05)
[2023-04-02] MEDS: Clopidogrel Bisulfate 75 MG TAB PO SCH (09:05)
[2023-04-02] MEDS: guaiFENesin ER 600 MG TAB PO SCH ×2 (09:05→21:31)
[2023-04-02] MEDS: Cholecalciferol 1,000 UNITS (25 MCG) TAB PO SCH (09:05)
[2023-04-02] MEDS: Atorvastatin Calcium 20 MG TAB PO SCH (09:05)
[2023-04-02] MEDS: Tamsulosin HCl 0.4 MG CAP PO SCH ×2 (09:05→21:31)
[2023-04-02] MEDS: Amlodipine 5 MG TAB PO SCH (09:06)
[2023-04-02] MEDS: Ferrous Sulfate 325 MG TAB PO SCH (09:06)
[2023-04-02] MEDS ORDERED: Polyethylene Glycol 3350 17 GM Packet PO SCH (09:30)
[2023-04-02] MEDS ORDERED: Furosemide 40 MG/4 ML VIAL SLOW IVP SCH (09:30)
[2023-04-02] MEDS: cefTRIAXone\\ROCEPHIN 1 GM in Sodium Chloride 0.9% 100 ML IVPB SCH (11:22)
[2023-04-02] MEDS: Nicotine 14 MG PATCH TD SCH (13:56)
[2023-04-02] MEDS: Azithromycin 500 MG in Sodium Chloride 0.9% 250 ML 250 ML IVPB SCH (13:56)
[2023-04-02] MEDS: Senokot S 8.6-50 MG TAB PO SCH (21:31)
[2023-04-03 04:40] VITALS: TEMP 97.8
[2023-04-03] MEDS: Levothyroxine Sodium 112 MCG TAB PO SCH (06:15)
[2023-04-03] MEDS: Ipratropium/Albuterol 3 ML NEB NEB SCH (07:44)
[2023-04-03] MEDS: Mometasone 100 MCG HFA INHALER (RT USE) INH SCH (07:46)
[2023-04-03] MEDS ORDERED: Polyethylene Glycol 3350 17 GM Packet PO SCH (09:00)
[2023-04-03] MEDS: Cholecalciferol 1,000 UNITS (25 MCG) TAB PO SCH (09:40)
[2023-04-03] MEDS: Senokot S 8.6-50 MG TAB PO SCH (09:40)
[2023-04-03] MEDS: Aspirin Chewable 81 MG TAB PO SCH (09:40)
[2023-04-03] MEDS: guaiFENesin ER 600 MG TAB PO SCH (09:40)
[2023-04-03] MEDS: Ferrous Sulfate 325 MG TAB PO SCH (09:40)
[2023-04-03] MEDS: Clopidogrel Bisulfate 75 MG TAB PO SCH (09:40)
[2023-04-03] MEDS: Amlodipine 5 MG TAB PO SCH (09:40)
[2023-04-03] MEDS: Atorvastatin Calcium 20 MG TAB PO SCH (09:41)
[2023-04-03] MEDS: methylPREDNISolone Sod Succ 40 MG VIAL IVP SCH (09:41)
[2023-04-03] MEDS: Lisinopril 10 MG TAB PO SCH (09:41)
[2023-04-03] MEDS: Ascorbic Acid 500 mg Chewable Tablet PO SCH (09:41)
[2023-04-03 09:42] VITALS: BP 159/74
== END 2023-04-03 12:08 | disposition home or self-care (01) | DRG 871 ==
LOC: ERS 11:20 → MSONC 13:59
PROVIDERS: ADMIT Hospitalist; ATTEND Family Medicine
DX: A41.9 Sepsis, unspecified organism (principal); J18.9 Pneumonia, unspecified organism; J96.21 Acute and chronic respiratory failure with hypoxia; J44.1 Chronic obstructive pulmonary disease with (acute) exacerbation; J44.0 Chronic obstructive pulmonary disease with (acute) lower respiratory infection; Z66 Do not resuscitate; I10 Essential (primary) hypertension; E04.9 Nontoxic goiter, unspecified; F17.210 Nicotine dependence, cigarettes, uncomplicated; I25.10 Atherosclerotic heart disease of native coronary artery without angina pectoris; E03.9 Hypothyroidism, unspecified; F19.10 Other psychoactive substance abuse, uncomplicated; K21.9 Gastro-esophageal reflux disease without esophagitis; Z88.5 Allergy status to narcotic agent; Z79.890 Hormone replacement therapy; Z79.899 Other long term (current) drug therapy; Z98.890 Other specified postprocedural states; Z71.6 Tobacco abuse counseling; I25.2 Old myocardial infarction; Z95.5 Presence of coronary angioplasty implant and graft
CPT/HCPCS: 36415; 71045; 80048; 80053; 83605; 83880; 84484; 85025; 85730; 87040; 87070; 87205; 93005; 93306; 94640; 96365; 96367; 96375; J0456; J0696; J1650; J1940; J2920; J2930; J3475; J3490; J7050; J7620

== ENCOUNTER 2023-05-06 09:50 | Inpatient (IN) | payer BC, MEDICARE ==
[2023-05-06] MEDS ORDERED: Ipratropium/Albuterol 3 ML NEB ONE (10:16)
[2023-05-06] MEDS ORDERED: methylPREDNISolone Sod Succ/PF 125 MG/2 ML VIAL ONE (11:27)
[2023-05-06 11:28] LABS: #Monocytes 0.4 thou/uL (0.11-0.59); #Neutrophils 3.7 thou/uL (1.40-6.50); %Basophils 0.6 % (0.0-1.0); %Eosinophils 0.2 % (0.0-10.0); %Lymphocytes 17.8 % (21.0-51.0); %Monocytes 8.4 % (0.0-10.0); %Neutrophils 72.2 % (42.0-75.0); Hematocrit 38.3 % (42.0-52.0); Hemoglobin 11.1 g/dL (14.0-18.0); Mean Corpuscular Hemoglobin 25.3 pg (27.0-31.0); Mean Corpuscular Volume 87.2 fl (78.0-98.0); Mean Platelet Volume 9.3 fL (7.4-10.4); Platelet Count 422 10x3/uL (130-400); RBC Distribution Width 19.3 % (11.5-14.5); Red Blood Cell (RBC) Count 4.39 mill/uL (4.70-6.10); White Blood Cell (WBC) Count 5.1 10x3/uL (4.8-10.8)
[2023-05-06 11:54] LABS: ALT (SGPT) 11 U/L (8-55); AST (SGOT) 12 U/L (5-34); Albumin 3.8 g/dL (3.4-4.8); Alkaline Phosphatase 94 U/L (40-110); Anion Gap 12 mmol/L (10-20); BUN (Urea Nitrogen) 8 mg/dL (8.4-25.7); Bilirubin, Total 0.2 mg/dL (0.2-1.2); Calc. Creatinine Clearance 0 mL/min (70-130); Calcium 9.1 mg/dL (7.8-10.44); Carbon Dioxide 32 mmol/L (23-31); Chloride 97 mmol/L (98-107); Estimated GFR 74; Globulin 2.8 g/dL (2.4-3.5); Glucose 91 mg/dL (83-110); Lipase 10 U/L (8-78); Magnesium 2.1 mg/dL (1.6-2.6); Potassium 4.2 mmol/L (3.5-5.1); Protein, Total 6.6 g/dL (5.8-8.1); Sodium 137 mmol/L (136-145); Troponin I Less than 0.010 ng/mL (< 0.028)
[2023-05-06] MEDS ORDERED: Acetaminophen 325 MG TAB PO PRN (12:19)
[2023-05-06] MEDS ORDERED: Ondansetron PF 4 MG/2 ML Vial IVP PRN (12:19)
[2023-05-06] MEDS ORDERED: Ondansetron ODT 4 MG TAB PO PRN (12:19)
[2023-05-06] MEDS ORDERED: Sodium Chloride 0.9% 100 ML ONE (12:37)
[2023-05-06] MEDS ORDERED: cefTRIAXone (ROCEPHIN) 1 GM VIAL ONE (12:38)
[2023-05-06] MEDS ORDERED: Benzonatate 100 MG CAP PO PRN (12:59)
[2023-05-06] MEDS ORDERED: Enoxaparin 40 MG (0.4 mL) SYRINGE SC SCH (13:00)
[2023-05-06] MEDS ORDERED: Azithromycin 500 MG VIAL ONE (13:17)
[2023-05-06 13:26] LABS: Troponin I Less than 0.010 ng/mL (< 0.028)
[2023-05-06] MEDS: Ipratropium/Albuterol 3 ML NEB NEB SCH ×3 (13:55→22:31)
[2023-05-06] MEDS: Nicotine 14 MG PATCH TD SCH (14:36)
[2023-05-06 14:48] VITALS: BMI 25.4
[2023-05-06] MEDS: Azithromycin 500 MG in Sodium Chloride 0.9% 250 ML 250 ML IVPB SCH (14:52)
[2023-05-06] MEDS: cefTRIAXone\\ROCEPHIN 1 GM in Sodium Chloride 0.9% 100 ML IVPB SCH (14:52)
[2023-05-06] MEDS ORDERED: FLU VACC QS2023(65UP)/MF59C/PF 60 MCG/0.5 ML SYRINGE IM ONE (15:45)
[2023-05-06] MEDS ORDERED: Ipratropium/Albuterol 3 ML NEB NEB PRN (17:18)
[2023-05-06] MEDS: Mometasone 100 MCG HFA INHALER (RT USE) INH SCH (18:19)
[2023-05-06] MEDS: methylPREDNISolone Sod Succ 40 MG VIAL IVP SCH ×2 (18:29→23:26)
[2023-05-06] MEDS: Atorvastatin Calcium 20 MG TAB PO SCH (20:50)
[2023-05-06] MEDS: guaiFENesin ER 600 MG TAB PO SCH (20:50)
[2023-05-06] MEDS: Tamsulosin HCl 0.4 MG CAP PO SCH (20:50)
[2023-05-06 23:54] LABS: Troponin I Less than 0.010 ng/mL (< 0.028)
[2023-05-07] MEDS: Levothyroxine Sodium 112 MCG TAB PO SCH (05:01)
[2023-05-07] MEDS: methylPREDNISolone Sod Succ 40 MG VIAL IVP SCH ×4 (05:01→23:59)
[2023-05-07 05:18] LABS: #Neutrophils 3.8 thou/uL (1.40-6.50); %Lymphocytes 9.8 % (21.0-51.0); %Monocytes 0.7 % (0.0-10.0); %Neutrophils 89.3 % (42.0-75.0); Hematocrit 31.7 % (42.0-52.0); Hemoglobin 9.3 g/dL (14.0-18.0); Mean Corpuscular HGB CONC 29.3 g/dL (32.0-36.0); Mean Corpuscular Hemoglobin 25.4 pg (27.0-31.0); Mean Corpuscular Volume 86.6 fl (78.0-98.0); Mean Platelet Volume 9.4 fL (7.4-10.4); Platelet Count 372 10x3/uL (130-400); RBC Distribution Width 18.7 % (11.5-14.5); Red Blood Cell (RBC) Count 3.66 mill/uL (4.70-6.10); White Blood Cell (WBC) Count 4.3 10x3/uL (4.8-10.8)
[2023-05-07 05:40] LABS: Anion Gap 12 mmol/L (10-20); BUN (Urea Nitrogen) 12 mg/dL (8.4-25.7); Calc. Creatinine Clearance 66 mL/min (70-130); Calcium 8.4 mg/dL (7.8-10.44); Carbon Dioxide 29 mmol/L (23-31); Chloride 98 mmol/L (98-107); Estimated GFR 85; Glucose 168 mg/dL (83-110); Potassium 4.1 mmol/L (3.5-5.1); Sodium 135 mmol/L (136-145)
[2023-05-07] MEDS: Ipratropium/Albuterol 3 ML NEB NEB SCH ×3 (06:33→18:58)
[2023-05-07] MEDS: Mometasone 100 MCG HFA INHALER (RT USE) INH SCH ×2 (06:35→18:59)
[2023-05-07] MEDS: guaiFENesin ER 600 MG TAB PO SCH ×2 (10:06→21:25)
[2023-05-07] MEDS: Tamsulosin HCl 0.4 MG CAP PO SCH ×2 (10:06→21:24)
[2023-05-07] MEDS: Amlodipine 5 MG TAB PO SCH (10:06)
[2023-05-07] MEDS: Cholecalciferol 1,000 UNITS (25 MCG) TAB PO SCH (10:06)
[2023-05-07] MEDS: Lisinopril 10 MG TAB PO SCH (10:06)
[2023-05-07] MEDS: Ascorbic Acid 500 mg Chewable Tablet PO SCH (10:06)
[2023-05-07] MEDS: Ferrous Sulfate 325 MG TAB PO SCH (10:06)
[2023-05-07] MEDS: Aspirin Chewable 81 MG TAB PO SCH (10:06)
[2023-05-07] MEDS: Clopidogrel Bisulfate 75 MG TAB PO SCH (10:07)
[2023-05-07] MEDS ORDERED: Budesonide 0.5 MG/2 ML NEB INH SCH (10:07)
[2023-05-07] MEDS: cefTRIAXone\\ROCEPHIN 1 GM in Sodium Chloride 0.9% 100 ML IVPB SCH (14:33)
[2023-05-07] MEDS: Azithromycin 500 MG in Sodium Chloride 0.9% 250 ML 250 ML IVPB SCH (14:33)
[2023-05-07] MEDS: Nicotine 14 MG PATCH TD SCH (14:34)
[2023-05-07] MEDS: Budesonide 0.5 MG/2 ML NEB INH SCH (18:59)
[2023-05-07] MEDS: Atorvastatin Calcium 20 MG TAB PO SCH (21:25)
[2023-05-08] MEDS: Ipratropium/Albuterol 3 ML NEB NEB SCH ×3 (01:18→12:03)
[2023-05-08] MEDS: methylPREDNISolone Sod Succ 40 MG VIAL IVP SCH ×2 (05:54→13:25)
[2023-05-08] MEDS: Levothyroxine Sodium 112 MCG TAB PO SCH (05:54)
[2023-05-08] MEDS: Budesonide 0.5 MG/2 ML NEB INH SCH (06:33)
[2023-05-08] MEDS: Mometasone 100 MCG HFA INHALER (RT USE) INH SCH (06:36)
[2023-05-08 07:41] VITALS: BP 143/64; TEMP 97.9
[2023-05-08] MEDS: Cholecalciferol 1,000 UNITS (25 MCG) TAB PO SCH (07:57)
[2023-05-08] MEDS: Ascorbic Acid 500 mg Chewable Tablet PO SCH (07:58)
[2023-05-08] MEDS: guaiFENesin ER 600 MG TAB PO SCH (07:58)
[2023-05-08] MEDS: Tamsulosin HCl 0.4 MG CAP PO SCH (07:58)
[2023-05-08] MEDS: Lisinopril 10 MG TAB PO SCH (07:58)
[2023-05-08] MEDS: Amlodipine 5 MG TAB PO SCH (07:58)
[2023-05-08] MEDS: Ferrous Sulfate 325 MG TAB PO SCH (07:58)
[2023-05-08] MEDS: Clopidogrel Bisulfate 75 MG TAB PO SCH (07:58)
[2023-05-08] MEDS: Aspirin Chewable 81 MG TAB PO SCH (07:58)
[2023-05-08] MEDS: Azithromycin 500 MG in Sodium Chloride 0.9% 250 ML 250 ML IVPB SCH ×2 (13:25→13:27)
[2023-05-08] MEDS: Nicotine 14 MG PATCH TD SCH (13:25)
[2023-05-08] MEDS: cefTRIAXone\\ROCEPHIN 1 GM in Sodium Chloride 0.9% 100 ML IVPB SCH (15:11)
== END 2023-05-08 15:23 | disposition home or self-care (01) | DRG 193 ==
LOC: ERS 09:50 → T4-B 12:13
PROVIDERS: ADMIT Hospitalist; ATTEND Internal Medicine
DX: J18.9 Pneumonia, unspecified organism (principal); J96.21 Acute and chronic respiratory failure with hypoxia; J44.1 Chronic obstructive pulmonary disease with (acute) exacerbation; J44.0 Chronic obstructive pulmonary disease with (acute) lower respiratory infection; I10 Essential (primary) hypertension; F17.210 Nicotine dependence, cigarettes, uncomplicated; N40.0 Benign prostatic hyperplasia without lower urinary tract symptoms; K21.9 Gastro-esophageal reflux disease without esophagitis; I25.10 Atherosclerotic heart disease of native coronary artery without angina pectoris; G47.00 Insomnia, unspecified; I25.2 Old myocardial infarction; Z95.5 Presence of coronary angioplasty implant and graft; Z98.890 Other specified postprocedural states; Z88.8 Allergy status to other drugs, medicaments and biological substances; Z79.82 Long term (current) use of aspirin; Z79.899 Other long term (current) drug therapy
CPT/HCPCS: 36415; 36416; 71046; 80048; 80053; 83605; 83690; 83735; 84443; 84484; 85025; 87040; 93005; 94640; 96361; 96365; 96375; J0456; J0696; J1650; J2920; J2930; J3490; J7050; J7620; J7626

== ENCOUNTER 2023-05-22 08:09 | Inpatient (IN) | payer MEDICARE ==
[2023-05-22] MEDS ORDERED: Aspirin Chewable 81 MG TAB ONE (08:53)
[2023-05-22] MEDS ORDERED: methylPREDNISolone Sod Succ/PF 125 MG/2 ML VIAL ONE (08:53)
[2023-05-22] MEDS ORDERED: Nitroglycerin 0.4 MG TAB (25 Tab Bottle) ONE (08:53)
[2023-05-22 09:07] LABS: #Eosinphils 0.1 thou/uL (0.0-0.7); #Monocytes 0.6 thou/uL (0.11-0.59); #Neutrophils 7.9 thou/uL (1.40-6.50); %Basophils 0.3 % (0.0-1.0); %Eosinophils 0.5 % (0.0-10.0); %Neutrophils 85.8 % (42.0-75.0); Hematocrit 32.7 % (42.0-52.0); Hemoglobin 9.6 g/dL (14.0-18.0); Mean Corpuscular HGB CONC 29.4 g/dL (32.0-36.0); Mean Corpuscular Hemoglobin 25.4 pg (27.0-31.0); Mean Corpuscular Volume 86.5 fl (78.0-98.0); Mean Platelet Volume 10.5 fL (7.4-10.4); Platelet Count 204 10x3/uL (130-400); RBC Distribution Width 18.2 % (11.5-14.5); Red Blood Cell (RBC) Count 3.78 mill/uL (4.70-6.10); White Blood Cell (WBC) Count 9.2 10x3/uL (4.8-10.8)
[2023-05-22] MEDS ORDERED: Azithromycin 500 MG VIAL ONE (09:08)
[2023-05-22] MEDS ORDERED: Sodium Chloride 0.9% 100 ML ONE (09:08)
[2023-05-22] MEDS ORDERED: cefTRIAXone (ROCEPHIN) 2 GM VIAL ONE (09:08)
[2023-05-22 09:20] LABS: Actual Bicarbonate (HCO3v) 32.1 mEq/L (22-28); Analyzer IN Cardio ER; Base Excess 5.2 mEq/L (-2.0 to +3.0); Calcium, Ionized (venous) 1.12 mmol/L (1.16-1.32); Chloride (VBG) 96 mmol/L (98-106); Hematocrit-VBG 29 % (42.0-52.0); Hemoglobin (Hb) 9.8 g/dL (12.6-17.4); Potassium (VBG) 4.26 mmol/L (3.70-5.30); Sodium 136 mmol/L (133-146); pH (venous) 7.344 (7.32-7.43)
[2023-05-22 09:27] LABS: PTT 30.4 sec (22.9-36.1)
[2023-05-22 09:28] LABS: D-Dimer Test 2.08 mcg/mL (0.27-0.43); Prothrombin Time 12.8 sec (12.0-14.7)
[2023-05-22 09:30] LABS: ALT (SGPT) 7 U/L (8-55); AST (SGOT) 12 U/L (5-34); Albumin 3.8 g/dL (3.4-4.8); Alkaline Phosphatase 91 U/L (40-110); Anion Gap 12 mmol/L (10-20); BUN (Urea Nitrogen) 16 mg/dL (8.4-25.7); Bilirubin, Total 0.3 mg/dL (0.2-1.2); Calc. Creatinine Clearance 0 mL/min (70-130); Calcium 9.2 mg/dL (7.8-10.44); Carbon Dioxide 32 mmol/L (23-31); Chloride 96 mmol/L (98-107); Estimated GFR 67; Globulin 2.9 g/dL (2.4-3.5); Glucose 118 mg/dL (83-110); Lipase 10 U/L (8-78); Potassium 4.2 mmol/L (3.5-5.1); Protein, Total 6.7 g/dL (5.8-8.1); Sodium 136 mmol/L (136-145)
[2023-05-22 09:34] LABS: Troponin I Less than 0.010 ng/mL (< 0.028)
[2023-05-22] MEDS ORDERED: Iopamidol-370 76% 500 ML MDV (1 ML CHARGE) ONE (11:47)
[2023-05-22] MEDS ORDERED: Guaifenesin DM 100-10/5 ML UDCUP PO PRN (13:46)
[2023-05-22] MEDS ORDERED: Acetaminophen 325 MG TAB PO PRN (13:46)
[2023-05-22] MEDS ORDERED: Albuterol 2.5 MG (3 mL) NEB ONE (14:22)
[2023-05-22] MEDS ORDERED: Benzonatate 100 MG CAP PO PRN (14:25)
[2023-05-22] MEDS: Ipratropium/Albuterol 3 ML NEB NEB SCH (14:28)
[2023-05-22] MEDS ORDERED: LevoFLOXacin 750 mg/D5W 150 ml Premix Bag ONE (16:15)
[2023-05-22] MEDS: LevoFLOXacin 750 mg/D5W 750 MG in Premix 1 BAG IVPB SCH (16:35)
[2023-05-22 17:25] LABS: Troponin I Less than 0.010 ng/mL (< 0.028)
[2023-05-22 18:13] VITALS: BMI 24.7
[2023-05-22] MEDS: Tamsulosin HCl 0.4 MG CAP PO SCH (19:43)
[2023-05-22] MEDS: Famotidine 20 MG TAB PO SCH (19:43)
[2023-05-22 20:28] LABS: Troponin I Less than 0.010 ng/mL (< 0.028)
[2023-05-23] MEDS: Levothyroxine Sodium 112 MCG TAB PO SCH (08:48)
[2023-05-23] MEDS: methylPREDNISolone Sod Succ/PF 125 MG/2 ML VIAL IVP SCH (08:48)
[2023-05-23] MEDS: Aspirin Chewable 81 MG TAB PO SCH (08:48)
[2023-05-23] MEDS: Atorvastatin Calcium 20 MG TAB PO SCH (08:48)
[2023-05-23] MEDS: Clopidogrel Bisulfate 75 MG TAB PO SCH (08:48)
[2023-05-23] MEDS: Lisinopril 10 MG TAB PO SCH (08:49)
[2023-05-23] MEDS: Amlodipine 5 MG TAB PO SCH (08:49)
[2023-05-23] MEDS ORDERED: cloNIDine 0.1 MG TAB PO PRN (13:36)
[2023-05-23] MEDS: methylPREDNISolone Sod Succ 40 MG VIAL IVP SCH (17:34)
[2023-05-23] MEDS: Mag-Al 1200 mg/1200 mg/30 ML UDCUP PO PRN (18:16)
[2023-05-23 18:48] LABS: #Monocytes 0.2 thou/uL (0.11-0.59); #Neutrophils 10.8 thou/uL (1.40-6.50); %Basophils 0.2 % (0.0-1.0); %Lymphocytes 2.3 % (21.0-51.0); %Monocytes 1.4 % (0.0-10.0); %Neutrophils 95.7 % (42.0-75.0); Hematocrit 27.6 % (42.0-52.0); Hemoglobin 8.1 g/dL (14.0-18.0); Mean Corpuscular HGB CONC 29.3 g/dL (32.0-36.0); Mean Corpuscular Hemoglobin 25.5 pg (27.0-31.0); Mean Corpuscular Volume 86.8 fl (78.0-98.0); Mean Platelet Volume 11.1 fL (7.4-10.4); Platelet Count 202 10x3/uL (130-400); RBC Distribution Width 17.7 % (11.5-14.5); Red Blood Cell (RBC) Count 3.18 mill/uL (4.70-6.10); White Blood Cell (WBC) Count 11.3 10x3/uL (4.8-10.8)
[2023-05-23 19:12] LABS: ALT (SGPT) 8 U/L (8-55); AST (SGOT) 10 U/L (5-34); Albumin 3.3 g/dL (3.4-4.8); Alkaline Phosphatase 83 U/L (40-110); Anion Gap 16 mmol/L (10-20); BUN (Urea Nitrogen) 18 mg/dL (8.4-25.7); Bilirubin, Total Less than 0.2 mg/dL (0.2-1.2); Calc. Creatinine Clearance 52 mL/min (70-130); Carbon Dioxide 27 mmol/L (23-31); Chloride 98 mmol/L (98-107); Estimated GFR 66; Globulin 2.3 g/dL (2.4-3.5); Glucose 169 mg/dL (83-110); Potassium 4.7 mmol/L (3.5-5.1); Protein, Total 5.6 g/dL (5.8-8.1); Sodium 136 mmol/L (136-145)
[2023-05-24 05:06] LABS: #Monocytes 0.1 thou/uL (0.11-0.59); #Neutrophils 9.3 thou/uL (1.40-6.50); %Basophils 0.1 % (0.0-1.0); %Lymphocytes 1.8 % (21.0-51.0); %Monocytes 1.3 % (0.0-10.0); Hematocrit 26.6 % (42.0-52.0); Hemoglobin 7.7 g/dL (14.0-18.0); Mean Corpuscular HGB CONC 28.9 g/dL (32.0-36.0); Mean Corpuscular Hemoglobin 25.4 pg (27.0-31.0); Mean Corpuscular Volume 87.8 fl (78.0-98.0); Mean Platelet Volume 10.7 fL (7.4-10.4); Platelet Count 198 10x3/uL (130-400); RBC Distribution Width 17.6 % (11.5-14.5); Red Blood Cell (RBC) Count 3.03 mill/uL (4.70-6.10); White Blood Cell (WBC) Count 9.7 10x3/uL (4.8-10.8)
[2023-05-24 05:29] LABS: ALT (SGPT) 8 U/L (8-55); AST (SGOT) 10 U/L (5-34); Albumin 3.1 g/dL (3.4-4.8); Alkaline Phosphatase 75 U/L (40-110); Anion Gap 13 mmol/L (10-20); BUN (Urea Nitrogen) 24 mg/dL (8.4-25.7); Bilirubin, Total Less than 0.2 mg/dL (0.2-1.2); Calc. Creatinine Clearance 57 mL/min (70-130); Calcium 8.9 mg/dL (7.8-10.44); Carbon Dioxide 30 mmol/L (23-31); Chloride 100 mmol/L (98-107); Estimated GFR 73; Glucose 154 mg/dL (83-110); Potassium 4.7 mmol/L (3.5-5.1); Protein, Total 5.1 g/dL (5.8-8.1); Sodium 138 mmol/L (136-145)
[2023-05-24] MEDS: Senokot S 8.6-50 MG TAB PO PRN (12:23)
[2023-05-24] MEDS: Senokot S 8.6-50 MG TAB PO SCH ×2 (13:07→20:59)
[2023-05-25] MEDS: Levothyroxine Sodium 112 MCG TAB PO SCH (05:08)
[2023-05-25 05:47] LABS: #Monocytes 0.3 thou/uL (0.11-0.59); #Neutrophils 9.2 thou/uL (1.40-6.50); %Basophils 0.1 % (0.0-1.0); %Lymphocytes 3.2 % (21.0-51.0); %Monocytes 2.7 % (0.0-10.0); %Neutrophils 93.4 % (42.0-75.0); Hematocrit 24.9 % (42.0-52.0); Hemoglobin 7.2 g/dL (14.0-18.0); Mean Corpuscular HGB CONC 28.9 g/dL (32.0-36.0); Mean Corpuscular Hemoglobin 25.1 pg (27.0-31.0); Mean Corpuscular Volume 86.8 fl (78.0-98.0); Mean Platelet Volume 11.5 fL (7.4-10.4); Platelet Count 218 10x3/uL (130-400); RBC Distribution Width 17.7 % (11.5-14.5); Red Blood Cell (RBC) Count 2.87 mill/uL (4.70-6.10); White Blood Cell (WBC) Count 9.8 10x3/uL (4.8-10.8)
[2023-05-25 06:15] LABS: ALT (SGPT) 9 U/L (8-55); AST (SGOT) 10 U/L (5-34); Alkaline Phosphatase 71 U/L (40-110); Anion Gap 13 mmol/L (10-20); BUN (Urea Nitrogen) 28 mg/dL (8.4-25.7); Bilirubin, Total Less than 0.2 mg/dL (0.2-1.2); Calc. Creatinine Clearance 59 mL/min (70-130); Calcium 8.8 mg/dL (7.8-10.44); Carbon Dioxide 32 mmol/L (23-31); Chloride 98 mmol/L (98-107); Estimated GFR 77; Glucose 131 mg/dL (83-110); Potassium 4.6 mmol/L (3.5-5.1); Sodium 138 mmol/L (136-145)
[2023-05-25 06:23] LABS: CellaVision Operator ID lab.abc; Hypochromia SLIGHT = 6-15 cells HPF (0-5); Microcytosis SLIGHT = 6-15 cells HPF (0-5); Platelet Adequacy Comment Platelets Normal; Polychromasia SLIGHT = 2-3 cells HPF (0-2)
[2023-05-25] MEDS: Losartan 25 MG TAB PO SCH (08:42)
[2023-05-26 11:30] VITALS: BP 120/58; TEMP 97.8
== END 2023-05-26 12:47 | disposition hospice, home (50) | DRG 193 ==
LOC: ERS 08:09 → ERHOLD 13:28 → 2SW 19:09
PROVIDERS: ADMIT Family Medicine; ATTEND Internal Medicine
DX: J18.9 Pneumonia, unspecified organism (principal); J96.21 Acute and chronic respiratory failure with hypoxia; J44.1 Chronic obstructive pulmonary disease with (acute) exacerbation; C38.3 Malignant neoplasm of mediastinum, part unspecified; J44.0 Chronic obstructive pulmonary disease with (acute) lower respiratory infection; Z88.5 Allergy status to narcotic agent; Z88.8 Allergy status to other drugs, medicaments and biological substances; Z79.899 Other long term (current) drug therapy; Z79.82 Long term (current) use of aspirin; I10 Essential (primary) hypertension; Z98.890 Other specified postprocedural states; F17.210 Nicotine dependence, cigarettes, uncomplicated; I25.10 Atherosclerotic heart disease of native coronary artery without angina pectoris; I25.2 Old myocardial infarction; R59.0 Localized enlarged lymph nodes; E03.9 Hypothyroidism, unspecified; N40.0 Benign prostatic hyperplasia without lower urinary tract symptoms; Z66 Do not resuscitate; K21.9 Gastro-esophageal reflux disease without esophagitis; R53.81 Other malaise
CPT/HCPCS: 36415; 71045; 71275; 80053; 82805; 83605; 83690; 83880; 84484; 85025; 85379; 85610; 85730; 87040; 93005; 94640; 96365; 96367; 96375; J0456; J0696; J1956; J2920; J2930; J3490; J7611; J7620; Q9967